=== PATIENT | male | born 1940 | race Caucasian/White ===

== ENCOUNTER 2020-06-29 16:31 | Inpatient (IN) | payer OTHER ==
[~2020-06-29] VITALS: Ht 188 cm; Wt 116.3 kg
[~2020-06-29 16:31] MED LIST: CAND4 PO; OXYACE5T PO
[2020-06-29 17:05] LABS: BASOPHILS ABSOLUTE AUTO 0.04 K/mm3 (0.00-0.23); BASOPHILS PERCENT AUTO 1 % (0-2); EOSINOPHILS ABSOLUTE AUTO 0.02 K/mm3 (0.00-0.68); EOSINOPHILS PERCENT AUTO 0 % (0-6); Hematocrit 46.8 % (37.0-53.0); Hemoglobin 14.7 g/dL (13.5-17.5); IMMATURE GRAN ABSOLUTE AUTO 0.08 K/mm3 (0.00-0.10); IMMATURE GRAN PERCENT AUTO 1 % (0-1); LYMPHOCYTES ABSOLUTE AUTO 1.85 K/mm3 (0.84-5.20); LYMPHOCYTES PERCENT AUTO 32 % (21-46); MONOCYTES ABSOLUTE AUTO 1.49 K/mm3 (0.16-1.47); MONOCYTES PERCENT AUTO 26 % (4-13); Mean Corpuscular HGB 29.4 pg (26.0-34.0); Mean Corpuscular HGB Conc 31.4 g/dL (31.5-36.5); Mean Corpuscular Volume 94 fL (80-100); NEUTROPHILS ABSOLUTE AUTO 2.25 K/mm3 (1.96-9.15); NEUTROPHILS PERCENT AUTO 39 % (41-73); Platelet Count 106 K/mm3 (150-400); RDW Coefficient Variation 17.3 % (11.7-14.2); RDW Standard Deviation 59.4 fL (35.1-46.3); White Blood Cell Count 5.73 K/mm3 (4.00-11.30)
[2020-06-29 17:29] LABS: Alanine Aminotransfer (ALT/SGP 48 U/L (12-78); Albumin, Blood 4.3 g/dL (3.4-5.0); Alk Phos 85 U/L (50-136); Anion Gap 4 mmol/L (6-16); Aspartate Aminotrans (AST/SGOT 40 U/L (12-37); Bilirubin, Total 0.6 mg/dL (0.1-1.0); Blood Urea Nitrogen 26 mg/dL (8-24); Bun/Creatinine Ratio 29.3 (12.0-20.0); CO2, Blood 26 mmol/L (21-32); Calcium, Blood 9.4 mg/dL (8.5-10.1); Chloride, Blood 108 mmol/L (98-108); Creatinine, Blood 0.89 mg/dL (0.60-1.20); Globulin, Blood 4.5 g/dL (2.2-4.0); Glomerular Filtration Rate >60 (60-); Glucose, Blood 108 mg/dL (70-99); Potassium, Blood 4.5 mmol/L (3.5-5.5); Sodium, Blood 138 mmol/L (136-145); Total Protein, Blood 8.8 g/dL (6.4-8.2)
[2020-06-29 17:31] LABS: Troponin I <0.015 ng/mL (0.000-0.040)
[2020-06-29] MEDS ORDERED: MECL25 PO (18:39)
[2020-06-29] MEDS ORDERED: ELIQUIS5 M2 PO (19:29)
[2020-06-29] MEDS ORDERED: TAMSULOSIN HCL0.4 M1 PO (19:37)
--- NOTE | 2020-06-29 21:30 | NUR ---
REPORT FROM APPLE SUMNER IN ER. PT ARRIVES TO ICU ROOM 10 VIA STRETCHER. ALERT AND ORIENTED. MOVES TO NEW BED BY STANDING AND PIVOTING. PT DIZZY WITH MOVEMENT. BP ELEVATED. HR 40S AFIB. 18G TO RIGHT FA, DRESSING C/D/I, 18G TO LEFT AC, C/D/I. SKIN WNL. ABD SOFT AND NON TENDER +BS. LUNG SOUNDS CLEAR. PT ON ROOM AIR, SATS >92%. PT STATES HE HAS BEEN DIZZY AND NAUSEATED FOR WEEKS. SEE FULL SHIFT ASSESSMENT.
[2020-06-29 21:49] LABS: International Normalized Ratio 1.08; Prothrombin Time Results 11.5 Sec (9.7-11.5)
[2020-06-30 04:02] LABS: BASOPHILS ABSOLUTE AUTO 0.04 K/mm3 (0.00-0.23); BASOPHILS PERCENT AUTO 1 % (0-2); EOSINOPHILS ABSOLUTE AUTO 0.07 K/mm3 (0.00-0.68); EOSINOPHILS PERCENT AUTO 1 % (0-6); Hematocrit 42.3 % (37.0-53.0); Hemoglobin 13.8 g/dL (13.5-17.5); IMMATURE GRAN ABSOLUTE AUTO 0.06 K/mm3 (0.00-0.10); IMMATURE GRAN PERCENT AUTO 1 % (0-1); LYMPHOCYTES ABSOLUTE AUTO 2.24 K/mm3 (0.84-5.20); LYMPHOCYTES PERCENT AUTO 37 % (21-46); MONOCYTES ABSOLUTE AUTO 1.46 K/mm3 (0.16-1.47); MONOCYTES PERCENT AUTO 24 % (4-13); Mean Corpuscular HGB 29.9 pg (26.0-34.0); Mean Corpuscular HGB Conc 32.6 g/dL (31.5-36.5); Mean Corpuscular Volume 92 fL (80-100); NEUTROPHILS ABSOLUTE AUTO 2.17 K/mm3 (1.96-9.15); NEUTROPHILS PERCENT AUTO 36 % (41-73); Platelet Count 93 K/mm3 (150-400); RDW Coefficient Variation 17.4 % (11.7-14.2); RDW Standard Deviation 58.7 fL (35.1-46.3); Red Blood Cell Count 4.62 M/mm3 (4.30-5.90); White Blood Cell Count 6.04 K/mm3 (4.00-11.30)
[2020-06-30 04:04] LABS: Mean Platelet Volume 13.1 fL (9.1-12.4)
[2020-06-30 04:13] LABS: International Normalized Ratio 1.15; Prothrombin Time Results 12.2 Sec (9.7-11.5)
[2020-06-30 04:18] LABS: Alanine Aminotransfer (ALT/SGP 42 U/L (12-78); Albumin, Blood 3.9 g/dL (3.4-5.0); Alk Phos 74 U/L (50-136); Anion Gap 5 mmol/L (6-16); Aspartate Aminotrans (AST/SGOT 33 U/L (12-37); Bilirubin, Total 0.8 mg/dL (0.1-1.0); Blood Urea Nitrogen 22 mg/dL (8-24); CO2, Blood 26 mmol/L (21-32); Calcium, Blood 8.6 mg/dL (8.5-10.1); Chloride, Blood 110 mmol/L (98-108); Creatinine, Blood 0.92 mg/dL (0.60-1.20); Globulin, Blood 4.1 g/dL (2.2-4.0); Glomerular Filtration Rate >60 (60-); Glucose, Blood 92 mg/dL (70-99); Potassium, Blood 3.6 mmol/L (3.5-5.5); Sodium, Blood 141 mmol/L (136-145); Troponin I <0.015 ng/mL (0.000-0.040)
--- NOTE | 2020-06-30 06:18 | NUR ---
SHIFT SUMMARY PT REMAINS ALERT AND ORIENTED. VSS. RA SATS >92%, BP IMPROVED AFTER RECEIVING PO APRESOLINE, PO LISINOPRIL AND IV APRESOLINE. PT WITH NO COMPLAINTS OF PAIN OR SOB. C/O DIZZINESS ONLY. NPO SINCE MIDNIGHT. VOIDS USING URINAL. NO SKIN ISSUES. SL 18G TO RIGHT FA, DRESSING C/D/I. HEPARIN INFUSING @ 15UNITS/KG/HR TO 18G IN LEFT AC. PLAN FOR CARDIOLOGY TO SEE PT FOR POSS PACEMAKER PLACEMENT. WILL REPORT TO ONCOMING SHIFT
--- NOTE | 2020-06-30 07:15 | NUR ---
Assumed care of pt at 0700. Bedside report received from Jose SUMNER. Pt A&O x 4. Answers questions. Follows commands. Verbalizes needs. Bedrest at this time due to low HR with several PVCs. Currently atrial fibrillation with left bundle branch block, rate 45-55, and approx 9 PVCs per minute. No edema. Pt on room air. SpO2 90% or greater. Lungs clear t/o. No cough. Pt PCU status. Bed in lowest position. Call light in reach. Pt denies need at this time.
--- NOTE | 2020-06-30 07:54 | NUR ---
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 States for pt to be NPO after midnight tonight.
--- NOTE | 2020-06-30 07:56 | NUR ---
CALL PLACED TO DR MARIN Notified provider that pt will not be receiving a pacemaker today. States it is okay for pt to have a diet.
--- NOTE | 2020-06-30 08:42 | NUR ---
Dr Arreola called unit to state he may place a pacemaker today. States he would like heparin drip turned off. He would like for pt to remain NPO at this time.
--- NOTE | 2020-06-30 11:37 | NUR ---
Pt has departed to heart center for pacemaker placmement. Pt NPO preprocedure.
--- NOTE | 2020-06-30 12:19 | NUR ---
ECHOCARDIOGRAM COMPLETED
--- NOTE | 2020-06-30 14:28 | NUR ---
Pt back in room from [facility] [place], status post single chamber pacemaker placemement. Surgical wound to left chest wall, dressed with nonadherent dressing and tegaderm. Dressing C/D/I. Atrial fibrillation per monitor with heart rate ranging from 60-70. No pacemaker spikes noted on monitor. Per procedural note, back up rate is 50. This RN educated pt on activity restrictions. Pt verbalized understanding. Sling placed per orders from Dr Arreola. Pt provided with written education, Dr Arreola Pacemaker Packet.
--- NOTE | 2020-06-30 18:47 | NUR ---
Pt has been sitting up in bed, awake and alert since return from labor custodian. HR 50 or greater. Dressing to left chest wall C/D/I. No drainage or bruising noted to site. Pt OOB once since return from labor custodian, to stand and use urinal. Unsteady on feet. Will continue to closely monitor until care handoff and bedside report with oncoming RN.
--- NOTE | 2020-06-30 20:37 | NUR ---
ASSUMED CARE NOTE: ASSUMED CARE OF PT AT 1900, RECEVIED REPORT FROM ANIYAH SUMNER. PT IS ALERT AND ORIENTEDX3. PT IS VERY [place]. PT ATTEMPTING TO GET OUT OF BED ON HIS OWN, HOWEVER, HE IS UNSTEADY OF HIS FEET. PT C/O DIZZINESS. PT IS IN AFIB, WITH HR BETWEEN 60-70'S. NO PACEMAKER SPIKES NOTED. PACEMAKER SITE IS COVERED, DRESSING IS C/D/I. PT DENIES PAIN TO SITE, ARM SLING IN PLACE. PT REMINDED NOT TO ELEVATE ARM. BT HEARD IN ALL FOUR QUADRANTS. PT USES URINAL AT BEDSIDE. WILL CONTINUE TO MONITOR PT T/O SHIFT.
--- NOTE | 2020-06-30 21:46 | NUR ---
UPDATE: PT IS CONFUSED, HE STARTED TO CALL OUT FOR PAULINE, HIS . STS THAT HE IS IN HIS NEIGHBORS HOUSE. HE THEN STARTED TO GET OUT OF BED STATING " WILL YOU HELP ME GET TO MY HOUSE" PT WAS THEN REORIENTED. HE UNDERSTANDS HE IS IN THE HOSPITAL. PT STS HIS HAS BEEN TELLING HIM THAT HE IS SEEING THINGS AT NIGHT THAT ARE NOT THERE. 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 PT WAS HELPED WITH URINAL AT BEDSIDE. PT WAS PLACED BACK TO BED WITH CALL LIGHT WITHIN REACH. BED AT LOWEST LEVEL, AND BED ALARM ON.
[2020-07-01 04:32] LABS: Hematocrit 43.3 % (37.0-53.0); Mean Corpuscular HGB 29.8 pg (26.0-34.0); Mean Corpuscular HGB Conc 32.3 g/dL (31.5-36.5); Mean Corpuscular Volume 92 fL (80-100); Platelet Count 91 K/mm3 (150-400); RDW Coefficient Variation 17.4 % (11.7-14.2); RDW Standard Deviation 59.4 fL (35.1-46.3); White Blood Cell Count 7.86 K/mm3 (4.00-11.30)
[2020-07-01 04:52] LABS: Albumin, Blood 3.9 g/dL (3.4-5.0); Anion Gap 7 mmol/L (6-16); Blood Urea Nitrogen 25 mg/dL (8-24); Bun/Creatinine Ratio 21.6 (12.0-20.0); CO2, Blood 24 mmol/L (21-32); Chloride, Blood 109 mmol/L (98-108); Creatinine, Blood 1.16 mg/dL (0.60-1.20); Glomerular Filtration Rate >60 (60-); Glucose, Blood 102 mg/dL (70-99); Phosphorus, Blood 3.3 mg/dL (2.5-4.9); Potassium, Blood 3.9 mmol/L (3.5-5.5); Sodium, Blood 140 mmol/L (136-145)
--- NOTE | 2020-07-01 06:18 | NUR ---
SHIFT SUMMARY: PT IS CONFUSED, AND IS UNABLE TO RECALL RECENT EVENTS. PT HAS NOT SLEPT THIS SHIFT. HE IS CONVINCED THAT HIS IS OUTSIDE HIS ROOM, AND THAT SHE IS GOING TO ASK FOR A DIVORCE. HR IS ANXIOUS AND IS WANTING TO GO HOME. PT NEEDS TO BE REORIENTED EACH TIME CARE IS BEING GIVEN. PT HAS BEEN IN AFIB WITH HR BETWEEN 60-70 BPM. PACEMAKER DRESSING INTACT, SCANT AMOUNTS OF SEROUS FLUID NOTED. PT NEEDS CONSTANT REMINDER TO NOT USE LEFT ARM. PT HAS BEEN TRYING TO GET OUT OF BED MULTIPLE TIMES T/O SHIFT. PT HAS BEEN USING URINAL AT BEDSIDE T/O SHIFT WITH ONE PERSON ASSIT. ELEVATED BP TOWARDS END OF SHIFT, HYDRALYZINE GIVEN PER EMAR. WILL CONTINUE TO MONITOR PT UNTIL REPORT IS GIVEN TO ONCOMING SHIFT. BED ALARM ON, BED AT LOWEST LEVEL.
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
--- NOTE | 2020-07-01 08:42 | NUR ---
Dr Arreola in to see pt. States that from cardiology standpoint, pt is okay to go home.
--- NOTE | 2020-07-01 09:53 | NUR ---
Pt unsafe, continuously triggers bed alarm, or tab alarm and typically across room when staff enter. Pt unsteady on feet and often falls into recliner, chair, or bed, and then states "Wow! I'm so dizzy". When asked if he thinks his actions are unsafe, he states "Well yeah, but I got to get stuff done. I have to go home and do things". Pt reminded that this is not a safe choice as pt has not been discharged from hospital. Pt agrees, but then continues to try and get up. Call placed to Dr Eugene. Pt okay to be placed in vest restraint for safety. PT/OT to be ordered for pt for safe mobility.
--- NOTE | 2020-07-01 11:00 | NUR ---
Dr Biswastrate in to see pt. Provider states pt may have PO ativan for agitation. Provider would like for pt to stay PCU status today.
--- NOTE | 2020-07-01 19:00 | NUR ---
SUMMARY Pt's delirium progressed as the shift continued. Auditory and visual hallucinations continued. Pt became increasingly agitated as shift progressed. Pt threw his wristwatch against the wall, breaking it, while in soft restraints. Pt able to get out of soft restraints several times and discontinue IVs, therefore upgraded to locked restraints. Locked restraints placed to BLE as patient began agitated flailing of legs, outside of bed. Security called to unit twice to assist with initial placement of locked restraints, and again when pt required bedding change due to incontinent urine void. Prior to placement of locked restraints, family was attempted to be reached by Gayathri SUMNER to sit with patient. Unable to reach family. Dr Eugene was updated by this RN several times as agitation progressed. Pt ultimately upgraded to ICU status with precedex drip to manage agitation. This RN placed call to Dr Eugene to inquire about head CT. New orders given. Head CT obtained and patient taken to CT by this RN and DARCY Shelley. At this time, precedex is at 0.7 mcg/kg/hr. BP stable. Bedside report given to Nicole SUMNER.
--- NOTE | 2020-07-01 19:30 | NUR ---
ASSUMED CARE NOTE: PT IS SEDATED WITH 0.7MCG/KG/HR OF PRECEDEX. PT IS RESPONDING TO PAINFUL STIMULI. PT IS ONM RA WITH SPO2 AT 97%, NO RESPRIATORY DISTRESS NOTED. PT IS IN AFIB WITH HR BETWEEN 50-60. PT IS IN TAT X4 RESTRAINTS. PT HAS BEEN INCONTINET OF URINE ACCORDING TO DAY SHIFT, ATTENDS IN PLACE. PACEMAKER SITE DRESSING IS INTACT. WILL TITRATE PRECEDEX, TO ASSESS NEURO STATUS. WILL CONTINUE TO MONITOR PT T/O SHIFT.
--- NOTE | 2020-07-01 21:05 | NUR ---
UPDATE: PT FIGHTING RESTRAINTS. PT IS MUMBULING, NOT MAKING ANY SENSE. NOT OPENING EYES. PRECEDEX TITATED TO 0.7MCG/KG/HR, DUE TO INCREASED AGITATION.
--- NOTE | 2020-07-01 21:35 | NUR ---
UPDATE: 5 STAFF MEMBERS IN ROOM TO HELP CHANGE PT'S SOLIED ATTEND. PT THRASHING IN BED, ATTEMPTING TO BITE. CURSING AND YELLING OUT. CONDOM CATH APPLIED TO TO PREVENT SKIN BREAKDOWN. NEW IV PLACED TO LEFT HAND, REQUIRED TWO STAFF MEMBERS. PT NOW CALM AND RESTING.
--- NOTE | 2020-07-01 22:12 | NUR ---
UPDATE: PT IS DESATURATING INTO THE MID 80'S WHILE SLEEPING. PT PLACED ON 2L OF 02 VIA NC, SPO2 AT 95%
--- NOTE | 2020-07-01 23:45 | NUR ---
CALLED REGARDING ELEVATED BP. ORDERS FOR HYDRALYZINE IV GIVEN. PRECEDEX 0.2MCG/KG/HR. PT IS BEING AFIB/PACED, HR CURRENTLY BETWEEN 49-60
[2020-07-02 03:35] LABS: BASOPHILS ABSOLUTE AUTO 0.04 K/mm3 (0.00-0.23); BASOPHILS PERCENT AUTO 1 % (0-2); EOSINOPHILS ABSOLUTE AUTO 0.03 K/mm3 (0.00-0.68); EOSINOPHILS PERCENT AUTO 0 % (0-6); Hemoglobin 14.7 g/dL (13.5-17.5); IMMATURE GRAN ABSOLUTE AUTO 0.07 K/mm3 (0.00-0.10); IMMATURE GRAN PERCENT AUTO 1 % (0-1); LYMPHOCYTES ABSOLUTE AUTO 1.25 K/mm3 (0.84-5.20); LYMPHOCYTES PERCENT AUTO 15 % (21-46); MONOCYTES ABSOLUTE AUTO 3.22 K/mm3 (0.16-1.47); MONOCYTES PERCENT AUTO 38 % (4-13); Mean Corpuscular HGB 29.9 pg (26.0-34.0); Mean Corpuscular Volume 94 fL (80-100); NEUTROPHILS ABSOLUTE AUTO 3.93 K/mm3 (1.96-9.15); NEUTROPHILS PERCENT AUTO 46 % (41-73); Platelet Count 87 K/mm3 (150-400); RDW Coefficient Variation 17.3 % (11.7-14.2); RDW Standard Deviation 60.4 fL (35.1-46.3); Red Blood Cell Count 4.92 M/mm3 (4.30-5.90); White Blood Cell Count 8.54 K/mm3 (4.00-11.30)
[2020-07-02 03:42] LABS: Mean Platelet Volume 12.9 fL (9.1-12.4)
[2020-07-02 03:50] LABS: Anion Gap 3 mmol/L (6-16); Blood Urea Nitrogen 16 mg/dL (8-24); Bun/Creatinine Ratio 16.7 (12.0-20.0); CO2, Blood 29 mmol/L (21-32); Chloride, Blood 110 mmol/L (98-108); Creatinine, Blood 0.96 mg/dL (0.60-1.20); Glomerular Filtration Rate >60 (60-); Glucose, Blood 112 mg/dL (70-99); Potassium, Blood 4.3 mmol/L (3.5-5.5); Sodium, Blood 142 mmol/L (136-145)
--- NOTE | 2020-07-02 05:04 | NUR ---
UPDATE: PT AWAKE, HE IS ORIENTED TO SELF AND FAMILY. PT IS AGITATED, MAKING THE FOLLOWING STATEMENTS: " IF I GET OUT OF THESE CUFFS, YOU ARE GOING TO WISH YOU WERE NOT HERE" " I DO NOT MAKE THREATS I JUST DO IT" " I WILL GET YOU, YOU LITTLE BUTTS, YOU WILL NEVER BE SEEN AGAIN" PT IS AGITATED BECAUSE HE THINKS WE ARE STEALING HIS BELONGINGS AND HOLDING HIS CAPTIVE. PT IS CONFUSED AND UNABLE TO BE REORIENTED. PRECEDEX CONTINUES TO BE AT 0.2MCG/KG/HR. BED AT LOWEST LEVELS, CALL LIGHT WITHIN REACH
--- NOTE | 2020-07-02 06:28 | NUR ---
SHIFT SUMMARY: SEE PREVIOUS NOTES.PT REMAINS ON 0.2MCG/KG/HR OF PRECEDEX. PT IS AGITATED WHEN AWAKE, WILL MAKES THREATS TO STAFF. PT IS STILL IN TATX4 RESTRAINTS. HE IS ALERT AND ORIENTED TO SELF. REFUSES TO FOLLOW COMMANDS. PT IS HAVING AUDITORY HALLUCINATIONS. PT IS NOW ON RA WITH SPO2 ABOVE 95%, REQUIRED 2L OF 02 VIA NC WHILE SLEEPING. BP STABLE, NO NEED FOR HYDRALYZINE NEEDED. PT HAS BEEN IN AFIB/PACED HR BETWEEN 49-65 BPM. PACEMAKER DRESSING INTACT. CONDOM CATH IN PLACE, GOOD URINE OUTPUT. NO BM THIS SHIFT, ATTENDS IN PLACE. WILL CONTINUE TO MONITOR PT UNTIL REPORT IS GIVEN TO ONCOMING SHIFT.
--- NOTE | 2020-07-02 08:56 | NUR ---
Received report from Regulo SUMNER. Patient sleeping at time of report and awakens easily to verbal stimuli. He is on RA and sats >90%. he is alert and oriented mostly and occassionally asks what facility he is in and then states "thats right" and is clear. Removed restraints at 0830 and patient calm and cooperative and states he ows alot of apologies for acting out. Sat him up for breakfast and he ate 100% and all fluids and asked for water afterwards. Got him out of bed after sitting at bedside and he did well with SBA. He is still alittle wobbly, and waked him for about 5 minutes in roomjust holding arm. Istrate by and did discharge and he called and will be going home. He has 18ga RAC dressing intact and site WNL's and is infusing NS at 75ml/hr and Prededex at 0.2 mcg/kg/hr and placed on standby at 0830.
[2020-07-02] MEDS ORDERED: ACET325 PO (09:38)
[2020-07-02] MEDS ORDERED: AMLO5 PO (09:40)
[2020-07-02] MEDS ORDERED: DOCU100 PO (09:41)
[2020-07-02] MEDS ORDERED: FAMO20 (09:42)
[2020-07-02] MEDS ORDERED: HYDR10 PO (09:43)
[2020-07-02] MEDS ORDERED: ONDA4ODT MM (09:44)
--- NOTE | 2020-07-02 10:53 | NUR ---
OT came ad assessed patient and requested that PT come evaluate. Patient has been up several times and is slightly unstable on his feet. PT in room training with cane. has arrived and will be taking him home. Called scripts into [facility].
--- NOTE | 2020-07-02 11:24 | NUR ---
Reviewed written discharge summary and new scripts with spouse and she returned understanding and also gave her ICU # incase any new questions. Patient wanted to walk out and was assisted by Daphney TAVERAS . Patient had all personal belongings. IV's pulled intact.
== END 2020-07-02 11:25 | disposition home or self-care (01) | DRG 243 ==
LOC: ER 16:31 → ICUW 16:32 → PCU 16:32 → ICUW 21:30
PROVIDERS: Family Medicine; Internal Medicine; Physician Assistant; ADMIT Internal Medicine
PROC: 0JH604Z Insertion of Pacemaker, Single Chamber into Chest Subcutaneous Tissue and Fascia, Open Approach (ICD-10-PCS; principal; 2020-06-30)
PROC: 02HK3JZ Insertion of Pacemaker Lead into Right Ventricle, Percutaneous Approach (ICD-10-PCS; 2020-06-30)
PROC: 3E0132A Introduction of Anti-Infective Envelope into Subcutaneous Tissue, Percutaneous Approach (ICD-10-PCS; 2020-06-30)
DX: I49.5 Sick sinus syndrome (principal); I48.21 Permanent atrial fibrillation; I44.7 Left bundle-branch block, unspecified; M06.9 Rheumatoid arthritis, unspecified; N40.0 Benign prostatic hyperplasia without lower urinary tract symptoms; D69.6 Thrombocytopenia, unspecified; E66.01 Morbid (severe) obesity due to excess calories; I10 Essential (primary) hypertension; Z68.33 Body mass index [BMI] 33.0-33.9, adult
CPT/HCPCS: 33207; 36415; 70450; 71045; 71046; 80048; 80053; 80069; 84443; 84484; 85025; 85027; 85610; 85730; 93005; 93010; 93306; 97116; 97162; 97166; 97530; 97535; 99152; 99153; 99285-25; A9270; C1781; C1786; C1894; C1898; J0360; J0690; J1644; J2250; J3010; J7030; J7040

== ENCOUNTER 2022-06-08 16:14 | Inpatient (IN) | payer OTHER ==
[~2022-06-08] VITALS: Ht 185.4 cm; Wt 119.5 kg
[~2022-06-08 16:14] MED LIST changes: +ACET325 PO; +AMLO5 PO; +DOCU100 PO; +ELIQUIS5 M2 PO; +FAMO20 PO; +HYDR10 PO; +MECL25 PO; +ONDA4ODT MM; +TAMSULOSIN HCL0.4 M1 PO
[2022-06-08 17:22] LABS: BASOPHILS ABSOLUTE AUTO 0.04 K/mm3 (0.00-0.23); BASOPHILS PERCENT AUTO 1 % (0-2); EOSINOPHILS ABSOLUTE AUTO 0.02 K/mm3 (0.00-0.68); EOSINOPHILS PERCENT AUTO 0 % (0-6); Hematocrit 37.8 % (37.0-53.0); Hemoglobin 12.8 g/dL (13.5-17.5); IMMATURE GRAN ABSOLUTE AUTO 0.06 K/mm3 (0.00-0.10); IMMATURE GRAN PERCENT AUTO 1 % (0-1); LYMPHOCYTES ABSOLUTE AUTO 1.09 K/mm3 (0.84-5.20); LYMPHOCYTES PERCENT AUTO 14 % (21-46); MONOCYTES ABSOLUTE AUTO 2.36 K/mm3 (0.16-1.47); MONOCYTES PERCENT AUTO 29 % (4-13); Mean Corpuscular HGB 29.7 pg (26.0-34.0); Mean Corpuscular HGB Conc 33.9 g/dL (31.5-36.5); Mean Corpuscular Volume 88 fL (80-100); NEUTROPHILS ABSOLUTE AUTO 4.47 K/mm3 (1.96-9.15); NEUTROPHILS PERCENT AUTO 56 % (41-73); Platelet Count 167 K/mm3 (150-400); RDW Coefficient Variation 15.3 % (11.7-14.2); RDW Standard Deviation 48.6 fL (35.1-46.3); Red Blood Cell Count 4.31 M/mm3 (4.30-5.90); White Blood Cell Count 8.04 K/mm3 (4.00-11.30)
[2022-06-08 17:24] LABS: Source, Urine Clean Catch
[2022-06-08 17:29] LABS: Albumin, Blood 4.1 g/dL (3.4-5.0); Albumin/Globulin Ratio 0.9 (0.8-1.8); Bun/Creatinine Ratio 22.8 (12.0-20.0); Calcium, Blood 9.1 mg/dL (8.5-10.1); Creatinine, Blood 0.75 mg/dL (0.60-1.20); Globulin, Blood 4.4 g/dL (2.2-4.0); Potassium, Blood 3.5 mmol/L (3.5-5.5); Total Protein, Blood 8.5 g/dL (6.4-8.2)
[2022-06-08 17:32] LABS: Appearance, Urine Clear (Clear); Bilirubin, Urine Neg (Neg); Blood, Urine 3+ (Neg); Color, Urine Yellow (P-Yellow); Glucose Qualitative, Urine Neg (Neg); Ketones, Urine Neg (Neg); Leukocyte Esterase, Urine 1+ (Neg); Nitrite, Urine Neg (Neg); Protein, Urine 3+ (Neg); Specific Gravity, Urine 1.025 (1.003-1.022); Urobilinogen, Urine 2+ (Normal)
[2022-06-08 17:33] LABS: Mean Platelet Volume 13.7 fL (9.1-12.4)
[2022-06-08 17:54] LABS: Bacteria Mod /hpf; Granular Casts 0-2 /lpf (0); Squamous Epithelial Cells Rare /hpf (Few)
[2022-06-08 17:56] LABS: Magnesium, Blood 2.1 mg/dL (1.6-2.4)
[2022-06-08 17:58] LABS: Thyroid Stimulating Hormone 0.749 uIU/mL (0.360-4.800)
[2022-06-08 18:04] LABS: Base Excess Venous -0.9 mmol/L; Bicarbonate Venous 23.7 mmol/L (24.0-30.0); PCO2 Venous 35.8 mmHg (38-42); pH Blood Venous 7.43 (7.34-7.37)
[2022-06-08 18:38] LABS: Influenza A, PCR NEGATIVE (NEGATIVE); Influenza B, PCR NEGATIVE (NEGATIVE); Resp Syncytial Virus, PCR NEGATIVE (NEGATIVE); SARS-Cov-2 (COVID-19) PCR, MMC NEGATIVE (NEGATIVE)
[2022-06-08] MEDS ORDERED: LEFLUNOMIDE20 M2 PO (21:29)
[2022-06-08] MEDS ORDERED: DONEPEZIL HCL5 M2 PO (21:30)
--- NOTE | 2022-06-08 22:35 | NUR ---
ADMIT NOTE 81 YR OLD MALE ADMITTED TO FLOOR FROM THE ED WITH DX OF SEPSIS POSIBLY DUE TO UTI. ED RN VOICED WAS COVID POSITIVE 2 WKS AGO, BUT CURRENTLY TESTED NEGATIVE. STATED PT LIVES WITH HIS SON, WHO SHE REPORTEDLY SAID HE WAS GETTING MORE CONFUSED AND EVEN STRIPPED OFF CLOTHING AND RAN AROUND HOUSE "NAKED". PT APPEARS CONFUSED BUT CALM. CALL LIGHT IN REACH. BED ALARM ON. RAILS UP X 3
--- NOTE | 2022-06-08 23:35 | NUR ---
tele rn reports elevated ST waves. On pt assessment, denies chest pain. VS: T 98.6 temporal, P 71, R 20 even. BP 188/110 left wrist. O2 sats 100% room air. charge nurse did 12 lead EKG, : A fib, Left Zarephath deviation and left BBB. Call placed to MD recreation instructor. Orders obtained for SL Nitro for CP, Troponin level and send to PCU. Charge nurse notified.
[2022-06-09 00:27] LABS: Hematocrit 40.2 % (37.0-53.0); Hemoglobin 13.5 g/dL (13.5-17.5); Mean Corpuscular HGB 29.7 pg (26.0-34.0); Mean Corpuscular HGB Conc 33.6 g/dL (31.5-36.5); Mean Corpuscular Volume 89 fL (80-100); Platelet Count 175 K/mm3 (150-400); RDW Coefficient Variation 15.3 % (11.7-14.2); RDW Standard Deviation 48.8 fL (35.1-46.3); Red Blood Cell Count 4.54 M/mm3 (4.30-5.90); White Blood Cell Count 10.48 K/mm3 (4.00-11.30)
--- NOTE | 2022-06-09 00:33 | NUR ---
TRANSFER RECEIVED FROM MEDICAL FLOOR BY BED. PT IS AWAKE AND ALERT. ORIENTED TO SELF ONLY. DOES FOLLOW SIMPLE DIRECTIONS. MINIMAL VERBAL RESPONSE- MOSTLY YES AND NO ANSWERS. RESTLESS AND SLIGHTLY AGITATED. DENIES C/O CHEST PAIN OR OTHER DISCOMFORT AT THIS TIME. MONITOR SHOWS AFIB WITH BBB. OCCASIONALLY VENTRICULAR PACED. HYPERTENSION NOTED. LR INFUSING AT 125CC/HR PER ORDER. ATTENDS IN PLACE D/T INCONTINENCE. SEE ADMIT ASSESSMENT FOR FULL ASSESSMENT.
[2022-06-09 00:43] LABS: Bun/Creatinine Ratio 22.7 (12.0-20.0); Calcium, Blood 8.6 mg/dL (8.5-10.1); Creatinine, Blood 0.66 mg/dL (0.60-1.20); Potassium, Blood 3.8 mmol/L (3.5-5.5)
--- NOTE | 2022-06-09 00:45 | NUR ---
FAMILY UPDATE SON NOTIFIED OF PT'S TRANSFER TO ICU PCU STATUS.
--- NOTE | 2022-06-09 01:55 | NUR ---
HYPERTENSION/AGITATION/PAIN DR. PALMER NOTIFIED OF CONTINUED HYPERTENSION- NEW ORDER RECEIVED FOR HYDRALAZINE Q4H PRN. ALSO NOTIFIED OF PT CONTINUALLY GRABBING AT HIS PENIS. FACIAL GRIMACING NOTED. PT IS RESTLESS AND AGITATED- PULLING ON IV LINES AND PULLING OFF TELEMETRY LEADS REPEATEDLY. NEW ORDER RECEIVED FOR PAIN MANAGEMENT AND ALSO FOR RESTRAINTS.
--- NOTE | 2022-06-09 06:46 | NUR ---
SHIFT SUMMARY NO ACUTE CHANGES. CONTINUES TO BE AGITATED WHEN AWAKE. PULLING ON IV LINES, ATTENDS, TELEMETRY LEADS. PUSHES AGAINST STAFF WHEN ATTEMPTING TO TURN PATIENT. BILATERAL SOFT WRIST RESTRAINTS IN PLACE TO PROTECT TUBES/LINES. CONTINUES TO BE CONFUSED AND DISORIENTED. ORIENTED TO SELF ONLY. MEDICATED WITH FENTANYL 25MCG IV X 2 DOSES FOR COMFORT WITH GOOD RESULTS. LR INFUSING AT 125CC/HR. INCONTINENT OF URINE- ATTENDS IN PLACE. WILL REPORT TO ONCOMING RN WHEN AVAILABLE.
--- NOTE | 2022-06-09 09:00 | NUR ---
DETAILED NEURO ASSESSMENT When asked a question, pt struggles to respond with anything besides "yes", "no", or "hmm". Pt often requires commands to be repeated several times before he follows them. Employee Benefits Attorney are equal bilateral. Pt unable to wiggle toes when instructed to do so, but lifts his feet off the bed with equal strength. No facial droop. Updates given to family, who states that he is highly functional at baseline. 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 Family states that Marcy was recently hospitalized and David participated in her care, spoke to the healthcare providers, and was able to relay information given to him to the rest of the family.
--- NOTE | 2022-06-09 09:42 | NUR ---
Assumed care of pt at 0700. Report received from Marcy SUMNER. Pt alert. Answers questions, slow to respond. Unable to correctly state name or date of , able to state his 's name, however. Reluctant to follow directions. Unclear if able to safely give PO medications. Pt on room air. Afib per monitor with BBB and PVCs- no pacemaker spikes noted. SpO2 90% or greater room air. PCU status.
--- NOTE | 2022-06-09 09:55 | NUR ---
Unable to safely give PO meds. Pt is not following directions consistently enough and is having difficulty understanding cues to drink fluids.
--- NOTE | 2022-06-09 12:30 | NUR ---
Dr Chapman in to see patient. Provider states patient may be medical floor status without telemetry. Pt's family was concerned and stated "we want more testing done, like for heavy metals and mold". They stated concern because the patient lives in an older house. They also acknowledged that nobody else living in this house is ill. These concerns were realyed to Dr Chapman.
--- NOTE | 2022-06-09 14:27 | NUR ---
Noted worsening to rash on pt's left abdomen/flank area. Discussed with charge nurse. Concern that rash is shingles. Updated photographs taken. Dr Chapman notified. Bladder scan also performed because pt has not peed this shift. Bladder scan revealed greater than 1 L of urine in bladder. Temp henderson inserted. Urinalysis sent. Temp henderson revealed that pt is febrile per core temp.
[2022-06-09 14:45] LABS: Source, Urine Foley catheter
[2022-06-09 14:53] LABS: Appearance, Urine Clear (Clear); Bilirubin, Urine Neg (Neg); Blood, Urine 5+ (Neg); Color, Urine Amber (P-Yellow); Glucose Qualitative, Urine 2+ (Neg); Ketones, Urine 3+ (Neg); Leukocyte Esterase, Urine Neg (Neg); Nitrite, Urine Neg (Neg); Protein, Urine 3+ (Neg); Urobilinogen, Urine 1+ (Normal)
[2022-06-09 15:00] LABS: Red Blood Cells, Urine 50-100 /hpf (0-2); White Blood Cells, Urine 0-2 /hpf (0-5)
[2022-06-09 15:01] LABS: Bacteria Few /hpf; Squamous Epithelial Cells Not Seen /hpf (Few)
--- NOTE | 2022-06-09 17:56 | NUR ---
SUMMARY Pt is medical floor status. Telemetry no longer requried per orders. Neuro: Pt is alert. Able to state last name "Muna". Pt will not provide first name, date of , or current location. Pt often requires questions to be repeated before he provides a response. Pt often answers "yes", "no", "hmm", or he will laugh. PERRL. Cough and gag intact. PO intake given as pt's mentation and ability to follow directions permits. Currently afebrile. T-max this shift 101.2 per henderson catheter. Musucloskeletal: Moves all extremities with equal strength and range of motion bilaterally. Pt repositioned Q2H. In bilateral wrist restraints as pt has been pulling at lines and cords. Removed IV during previous shift. This RN has witnessed pt pulling at SpO2 and henderson catheter despite restraint. Respiratory: SpO2 90% or greater with room air. Dry, occasional, nonproductive cough. Lungs clear in upper ibarra, diminished in bases. Cardiac: Atrial fibrillation, rate 70-85. Bundle branch block. Occasional PVCs and occasional ventricular paced beats. No edema. Capillary refill <3 seconds BUE and BLE. GI: Incontinent BM this shift into attends- unformed, brown. : Temp henderson catheter placed due to urinary retention and bladder scan of <999 mL. 1200 mL of urine out this shift. Initally tea colored, but is now red/yellow. Henderson inserted without incident or difficulty, but pt now has blood at meatus and blood tinged urine from pulling on catheter. Skin: See previous note. Rash to LLQ/ L flank is shingles, per Dr Chapman. Pt in airborne isolation. Started on valacyclovir. Psychosocial: Confused, but otherwise smiling and pleasant.
--- NOTE | 2022-06-09 23:04 | NUR ---
ASSUMED CARE AT 1900 PT LAYING IN BED SLEEPING AT SHIFT CHANGE. PT IS RESPONSIVE TO VERBAL STIMULI; ORIENTED TO SELF AND SURROUNDINGS BUT UNKNONW OF PLACE, TIME, AND SITUATION; OCCATIONALLY FOLLOWS DIRECTIONS; SLEEPING WHEN NOT STIMULATED; WILL ANSER "YEAH" TO MOST QUESTIONS, UNSURE HOW APPROPORIATE THE ANSWER IS. SPO2 >97% ON RA. HR 70'S; AFIB NOTED, OCCATIONAL PACED BEATS. ESTEVEZ IN PLACE. SEE SHIFT ASSESSMENT FOR FULL ASSESSMENT.
--- NOTE | 2022-06-10 05:58 | NUR ---
END OF SHIFT SUMMARY NO ACUTE EVENTS OVERNIGHT AND SLEPT FOR MOST OF THE NIGHT. PT REACTIVE TO VERBAL STIMULI, HE RESPONDS WITH THREE PHRASES WHEN ASKED QUESTIONS "YEP", "NOPE", AND "[place]". VSS. FREQUENTLY ATTEMPTS TO PULL ON ESTEVEZ WHEN NOT RESTRAINED, NOT REDIRECTABLE. ATTEMPTED TO GIVE 0000 VALACYCLOVIS BUT PT REFUSED; PT NOT UNDERSTANDING HOW TO HAVE A BITE OF APPLESAUCE; HIS HEAD GOES BACK AND FORTH AND EVENTUALLY HE HELLED OUT "NO!" TO EATING MEDICATION IN APPLESAUCE. WILL REPORT TO AM RN WHEN AVIALABLE.
--- NOTE | 2022-06-10 07:15 | NUR ---
Assumed care of pt at 0700 from Patricia SUMNER. Pt is responsive to verbal stimulus. Does not follow commands. Rarely answers questions. SpO2 90% or greater with room air. Afib per monitor with PVCs, pacemaker spikes, and BBB. Lawrence catheter in place to facilitate urine drainage in pt with retention. Minoo urine. Bilateral soft wrist restraints to protect patient from pulling at cords and lines.
--- NOTE | 2022-06-10 08:30 | NUR ---
Call placed to Dr Chapman to discuss pt's deterioration in mental satus when compared with previous day shift. Discussed that pt is febrile and was unable to take valacylovir during previous shift. 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
[2022-06-10 08:31] LABS: Hematocrit 37.5 % (37.0-53.0); Hemoglobin 12.9 g/dL (13.5-17.5); Mean Corpuscular HGB 30.1 pg (26.0-34.0); Mean Corpuscular HGB Conc 34.4 g/dL (31.5-36.5); Mean Corpuscular Volume 87 fL (80-100); Platelet Count 162 K/mm3 (150-400); RDW Coefficient Variation 15.3 % (11.7-14.2); RDW Standard Deviation 48.9 fL (35.1-46.3); Red Blood Cell Count 4.29 M/mm3 (4.30-5.90)
[2022-06-10 08:33] LABS: Mean Platelet Volume 13.2 fL (9.1-12.4)
[2022-06-10 08:48] LABS: Albumin, Blood 3.5 g/dL (3.4-5.0); Albumin/Globulin Ratio 0.9 (0.8-1.8); Bilirubin, Total 1.2 mg/dL (0.1-1.0); Creatinine, Blood 0.57 mg/dL (0.60-1.20); Potassium, Blood 3.4 mmol/L (3.5-5.5); Total Protein, Blood 7.5 g/dL (6.4-8.2)
[2022-06-10 08:53] LABS: BASOPHILS PERCENT MAN 0 % (0-2); EOSINOPHILS PERCENT MAN 0 % (0-6); LYMPHOCYTES PERCENT MAN 9 % (21-46); MONOCYTES ABSOLUTE MAN 2.58 K/mm3 (0.16-1.47); MONOCYTES PERCENT MAN 21 % (4-13); NEUTROPHILS ABSOLUTE MAN 8.61 K/mm3 (1.96-9.15); SEG NEUTROPHILS PERCENT MAN 70 % (41-73); TOTAL CELLS COUNTED 100
--- NOTE | 2022-06-10 09:00 | NUR ---
Dr Chapman in to see patient. Provider states she will update family. Provided number for Zahraa, sister in law who is currently with the pt's spouse. Provider states pt to be PCU status for increased monitoring. Pt NPO.
--- NOTE | 2022-06-10 17:30 | NUR ---
SUMMARY Pt is PCU status. Transferred to PCU 12 at 1700, accompanied by this RN and PCT Meredith. Neuro: Responsive to verbal stimulus. Provides one to two words at a time, not always contextually appropriate. Rarely answers questions. Does not follow commands. 3 mm pupils PERRL. 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 Febrile per core temp. Required 650 mg tylenol rectally today as he cannot safely have PO intake. Musculoskeletal: Moves all extremities with equal strength and range of motion bilaterally. In bilat soft wrist restraints to prevent patient from pulling on cords and lines. Pt often reaches for henderson and pulls on it when he is able to. Cardiac: Afib per monitor with BBB, PVCs, and occaional V Paced beats. BP high/normal. No edema. Capillary refill <3 seconds BUE and BLE. GI: NPO this shift. No BM this shift. Abd soft, not tender on palpation. : Henderson catheter had good output of mendez urine. Skin: No changes to initial assessment. Shingles rash TAMERA. Pt is in airborne isolation Psychosocial: Unable to assess due to altered mentation and decreased LOC. Pt is withdrawn, irritable with stimulation, and confused. Family met with Dr Chapman today.
--- NOTE | 2022-06-10 18:33 | NUR ---
TRANSFER: pt transferred to PCU at 1708. He mumbles incoharently when asked orientation questions. Restraints in place. Niece at bedside.
[2022-06-11 04:42] LABS: BASOPHILS ABSOLUTE AUTO 0.03 K/mm3 (0.00-0.23); BASOPHILS PERCENT AUTO 0 % (0-2); EOSINOPHILS ABSOLUTE AUTO 0.05 K/mm3 (0.00-0.68); EOSINOPHILS PERCENT AUTO 0 % (0-6); Hematocrit 37.7 % (37.0-53.0); Hemoglobin 12.8 g/dL (13.5-17.5); IMMATURE GRAN ABSOLUTE AUTO 0.11 K/mm3 (0.00-0.10); IMMATURE GRAN PERCENT AUTO 1 % (0-1); LYMPHOCYTES ABSOLUTE AUTO 1.87 K/mm3 (0.84-5.20); LYMPHOCYTES PERCENT AUTO 16 % (21-46); MONOCYTES ABSOLUTE AUTO 4.29 K/mm3 (0.16-1.47); MONOCYTES PERCENT AUTO 37 % (4-13); Mean Corpuscular Volume 89 fL (80-100); NEUTROPHILS ABSOLUTE AUTO 5.37 K/mm3 (1.96-9.15); NEUTROPHILS PERCENT AUTO 46 % (41-73); Platelet Count 162 K/mm3 (150-400); RDW Coefficient Variation 15.2 % (11.7-14.2); RDW Standard Deviation 48.4 fL (35.1-46.3); Red Blood Cell Count 4.26 M/mm3 (4.30-5.90); White Blood Cell Count 11.72 K/mm3 (4.00-11.30)
[2022-06-11 04:47] LABS: Mean Platelet Volume 13.2 fL (9.1-12.4)
[2022-06-11 05:01] LABS: Albumin, Blood 3.5 g/dL (3.4-5.0); Albumin/Globulin Ratio 0.9 (0.8-1.8); Bilirubin, Total 1.7 mg/dL (0.1-1.0); Bun/Creatinine Ratio 26.3 (12.0-20.0); Calcium, Blood 7.9 mg/dL (8.5-10.1); Creatinine, Blood 0.65 mg/dL (0.60-1.20); Potassium, Blood 3.3 mmol/L (3.5-5.5); Total Protein, Blood 7.5 g/dL (6.4-8.2)
--- NOTE | 2022-06-11 05:50 | NUR ---
PATIENT REMAINED IN BILATERAL SOFT WRIST RESTRAINTS THROUHOUT THE NIGHT, CONSTANTLY PULLING AND GRABBING ANYTHING WITHIN HIS REACH. PT IS INITITALLY RESSISTENT TO ATTEMPTS TO PROVIDE CARE AND THEN IS AGREEABLE TO SOME WITH REASSURANCE OF BENEFIT OF CARE. OF NOW, AT 05:50, HE IS RESPONDING WITH TURCIOS SENTENCES VERSUS THE ONE OR TWO WORD ANSWERS AT THE BEGINNING OF THIS SHIFT. HE WAS ABLE TO DRINK SOME WATER WITH ASSISTANCE FROM STAFF WITHOUT ANY SWALLOWING CONCERNS. HE WAS NOT ABLE TO TAKE AN ORAL MEDICATIONS. I ATTEMPTED TO GIVE HIM ORAL TYLENOL AND HE FIRST TRIED TO CHEW THEM UP AND THEN SPIT THEM OUT. HE HAS BEEN FEBRILE WITH TEMPERATURES IN THE 99 - 101.5 RANGER PER CORE TEMPERATURE IN THE ESTEVEZ CATHETER. TYLENOL SUPPOSITORY ADMINISITERED ORDERED WITH SLIGHT DECREASE IN TEMPERATURE.
--- NOTE | 2022-06-11 15:46 | NUR ---
END OF SHIFT SUMMARY: PATIENT CHANGES. PATIENT IS NOW IN TOUGH COUGHS NEW ORDER IN SYSTEM, PATIENT HAS BEEN PULLING AT LINES, BUT NOW WITH THE TOUGH CUFFS, IS UNABLE OT REACH ESTEVEZ CATHETER, NON RESTRAINT TECHNIQUES IN PLACE WELL SUCH DISTRACTION, AND HIDING LINES AND CORDS. PATIENT IS STILL ONLY ALERT TO SELF, SINGLE WORDS ANSWERS, UNSURE OF SITUATION, IS MILDLY COOPERATIVE WITH CARE, UNABLE TO PREFORM ORAL CARE DUE TO MENTATION, WAS ABLE TO ADMINISTER OH TYLENOL, PATIENT TOLERATED WELL, WAS UNABLE TO PREFORM EVENING BLOOD PRESSURE, WILL ATTOMPT AGAIN WHEN TYLENOL IS AT FULL EFFECT. FAMILY WAS AT BEDSIDE EDUCATED ABOUT SITUATION. HOSPITALIST PREFORMED FULL PHYSICAL THIS AM AND IS AWARE OF SITUATION, NO CONCERNS FROM THIS RN OR HOSPITALIST AT THIS TIME WILL CONTINUE TO MONITOR.
[2022-06-12 04:40] LABS: BASOPHILS ABSOLUTE AUTO 0.07 K/mm3 (0.00-0.23); BASOPHILS PERCENT AUTO 1 % (0-2); EOSINOPHILS PERCENT AUTO 1 % (0-6); Hematocrit 37.7 % (37.0-53.0); Hemoglobin 12.8 g/dL (13.5-17.5); IMMATURE GRAN ABSOLUTE AUTO 0.09 K/mm3 (0.00-0.10); IMMATURE GRAN PERCENT AUTO 1 % (0-1); LYMPHOCYTES ABSOLUTE AUTO 1.75 K/mm3 (0.84-5.20); LYMPHOCYTES PERCENT AUTO 20 % (21-46); MONOCYTES ABSOLUTE AUTO 3.25 K/mm3 (0.16-1.47); MONOCYTES PERCENT AUTO 36 % (4-13); Mean Corpuscular HGB 29.8 pg (26.0-34.0); Mean Corpuscular Volume 88 fL (80-100); NEUTROPHILS ABSOLUTE AUTO 3.66 K/mm3 (1.96-9.15); NEUTROPHILS PERCENT AUTO 41 % (41-73); Platelet Count 163 K/mm3 (150-400); RDW Coefficient Variation 15.1 % (11.7-14.2); RDW Standard Deviation 48.4 fL (35.1-46.3); Red Blood Cell Count 4.29 M/mm3 (4.30-5.90); White Blood Cell Count 8.92 K/mm3 (4.00-11.30)
[2022-06-12 04:43] LABS: Mean Platelet Volume 13.1 fL (9.1-12.4)
[2022-06-12 04:56] LABS: Bun/Creatinine Ratio 26.4 (12.0-20.0); Calcium, Blood 7.8 mg/dL (8.5-10.1); Creatinine, Blood 0.57 mg/dL (0.60-1.20); Potassium, Blood 3.5 mmol/L (3.5-5.5)
--- NOTE | 2022-06-12 06:26 | NUR ---
NO ACUTE EVENTS OVERNIGHT LAST NIGHT. MR. MELARA'S MENTATION HAS IMPROVED SLIGHTLY. HE IS LESS RESISTENT TO CARES, FOLLOWING SOME DIRECTIONS, OPENING HIS EYES SPONTANEOUSLY AND KEEPING THEM OPEN, SPEAKING IN FULL SENTENCES VERSUS JUST ONE OR TWO WORDS. HE STILL PULLS AT ANYTHING WITHIN HIS REACH, BUT IS NOT FIGHTING THE RESTRAINTS MUCH. PT HAS BARELY SLEPT THE PAST TWO NIGHTS, AND HIS PO INTAKE IS VERY POOR.
--- NOTE | 2022-06-12 12:14 | NUR ---
FAMILY FEEDING PATIENT: PATIENT WAS RECENTLY UPGRADED TO PUREE DIET, PATIENT'S DAUGHTER ASKED IF SHE COULD FEED HIM. I SPECIFICALLY SAID NO DUE TO THIS BEING HIS FIRST TIME EATING. SHE NODDED IN AGREEMENT. PATIENT LOCAL DELIVERY DRIVERORLANDO HERNANDEZ INFORMED ME AFTER SHE WENT IN THE FAMILY HAD ALMOST HAD HIM COMPLETELY FINISHED WITH THE LUNCH TRAY. PATIENT IN NO SIGN OF ACUTE DISTRESS. CONTINUOUS PULSE OX IN PLACE. WILL CONTINUE TO MONITOR FOR POTENTIAL SIGNS OF ASPIRATION WE ARE UNAWARE OF HOW FAST AND LARGE THE PORTIONS WERE FROM FAMILY FEEDING.
--- NOTE | 2022-06-12 16:04 | NUR ---
END OF SHIFT MAXIMO: PATIENT HAS BEEN MORE ORIENTED AND ALERT FOR THE MOST SINCE I HAVE HAD THIS PATIENT. STILL ONLY ORIENTED TO SELF AND FAMILY, NOT SURE WHERE ATTMEPTED AND ENDORSED PAOLA. PATIENT HAS BEEN TOLERATING THE RESTRAINTS WELL. ESTEVEZ AND IV IN PLACE, SOME YODIT TO RED URINE INTERMITTENT BLOOD THROUGHOUT THE DAY, CATH CARE PREFORMED BY PCT DURING BED BATH. REPOSITIONED Q2. MULTIPLE BREAKS FROM RESTRAINTS WHILE IN THE ROOM. PATIENT HAS FRED MORE DROWSY DURING THE EVENING NAD HAS BEEN SLEEPING MOST OF THE DYA. PATIENT HSA BEEN UPGRADED FROM NPO, TO PUREE, PILLS CRUSHED IN PUDDING/APPLESAUCE. THIN LIQUIDS BY SPOON OR BY CUP. PATIENT HAS TOLERATED WELL. REFUSED ORAL CARE WILL ATTEMPT AGAIN LATER, PATIENT HAS BEEN HELD ON HEPARIN FOR POTENTIAL LUMBAR PUNCTURE THIS EVENING. HOSPITALIST WAS TO SPEAK WITH NIGHT HOSPITALIST WILL INFORM NIGHT RN. PATIENT IS ON RA WITH NO SIGNS OF ACUTE DISTRESS, SHINGLES ON LEFT FLANK APPEARS TO BE IMPROVING. TYLENOL GIVEN FOR KERR THIS AFTERNOON, HAS BEEN AFEBRILE FOR ME AT THIS TIME.
--- NOTE | 2022-06-12 16:14 | NUR ---
CONTINUED SHIFT SUMMARY: PATIENT DENIES CHEST PAIN, OR PAIN AT THIS TIME, NO OBVIOUS SKIN BREAKDOWN, PATIENT CAN ANSWER IN 1-2 WORDS WITH OCC SHORT SENTENCE. HARD TO DIFFER WHATS CONFUSION AND WHAT IS UNDERLYING ILLNESS PROGRESSION. PATIENT HAS LESLEY IV WHERE HE IS RECIEVING TKO ALONG WITH ACYCLOVIR, K+ REPLACEMENT, AND ATX, FLOWS WELL NO SIGNS OF INFILTRATION DURING THIS ASSESSMENT. WILL CONTINUE TO MONITOR UNTIL SHIFT CHANGE.
[2022-06-12 18:39] LABS: Automated CSF WBC Count 1.045 K/mm3 (0-5); WBC Count, CSF 1045 /mm3 (0-5)
--- NOTE | 2022-06-12 18:47 | NUR ---
LUMBAR PUNCTURE. SYED ACEVEDO WAS ANESTHISIOLOGY WHO PREFORMED LUMBAR PUNCTURE THIS OIL WELL DRILLER AND THREE OTHER RN'S AND PHYSICAL THERAPIST CENTER MANAGER ALL IN ASSISTNACE FOR LUMBAR PUNCTURE AND GETTING APPORPRIATE MATERIALS. PTT APPROPRIATE BY PREDFORMING PROVIDER. PATIETN TOLERATED THE PROCEDURE VERY WELL, NO NEED FOR THE VALIUM IV, LIDOCAINE AND PATIENTS OWN TOLERANCE WAS ENOUGH. PATIENT UNDERSTOOD WHAT THE PROCEDURE EVEN WITH ALTERED MENTAL STATUS. AWARE OF PROCEDURE THIS AM AND ANOTHER CALL THIS EVENING PRIOR TO LP. NO CONCERNS FROM THIS OIL WELL DRILLER AT THIS TIME.
[2022-06-12 18:58] LABS: RBC Count, CSF 520 /mm3 (0-0)
[2022-06-12 19:01] LABS: Appearance, CSF Clear (Clear); Color, CSF No Color (No Color)
[2022-06-12 19:19] LABS: Lymphocytes, CSF 81 % (40-80); Monocytes, CSF 18 % (15-45); Neutrophils, CSF 1 % (0-6)
[2022-06-12 20:27] LABS: Cryptococcus Neoformans/Gattii Not Detected (NOT DETECT); Enterovirus Not Detected (NOT DETECT); Escherichia Coli K1 Not Detected (NOT DETECT); Haemophilus Influenza Not Detected (NOT DETECT); Herpes Simplex Virus 1 Not Detected (NOT DETECT); Herpes Simplex Virus 2 Not Detected (NOT DETECT); Human Herpesvirus 6 Not Detected (NOT DETECT); Human Parechovirus Not Detected (NOT DETECT); Listeria Monocytogenes Not Detected (NOT DETECT); Neisseria Meningitidis Not Detected (NOT DETECT); Streptococcus Agalactiae Not Detected (NOT DETECT); Streptococcus Pneumoniae Not Detected (NOT DETECT); Varicella Zoster Virus Detected (NOT DETECT)
--- NOTE | 2022-06-13 06:26 | NUR ---
INTERNET PROJECT MANAGER SUMMARY PT REMAINS ALERT TO SELF BUT HE BELIVES HE IS IN [facility] BUT DID NOT KNOW THAT HE WAS IN THE HOSPITAL OR WHY HE IS HERE. PT'S BP WAS ELEVATED THIS SHIFT W SBP IN THE 160'S SO HYDRALAZINE WAS GIVEN X1 AND HIS SBP REMAINED IN THE 140'S. O2 SATS >90% ON RM AIR. PT AFEBRILE THIS SHIFT. PT'S ESTEVEZ PATENT AND DRAINING 1800ML DARK YODIT URINE THIS SHIFT. ALTHOUGH HE IS VERY CONFUSED STILL HE IS MUCH MORE ALERT THIS AM SITTING UP IN BED WATCHING TV. WILL REPORT TO ONCOMING RN.
--- NOTE | 2022-06-13 07:15 | NUR ---
Received report from Noc RN. Patient laying supine in bed with HOB at 30 degrees and is on RA with sats >90%. He is alert to self, city, building and family he lives with. He is in tuff cuffs as he pulls at lines and tubes and will wean off today as he feels more oriented. He has 18ga IV in LESLEY and is WNL and is infusing NS at TKO. he has 16Fr temp henderson and temp wire cut and has clear yellow urine in adequate amounts. He tolerated sips of water without difficulty.He is intermittently ventrical paced in the 70's and BP 125/70 with MAP >65. He is able to MAEW. He is in attends r/t incontinence. Reviewed call systems and not to pull at lines and tubes when out of room.
--- NOTE | 2022-06-13 08:00 | NUR ---
Recieved report from Noc RN. Patient is sitting up in bed awake and is able to communicate his needs. he is on 2L via NC and sats 97% at rest. He has RAC 18ga IV with NS at 100 ml/hr. He uses urinal appropriately and has clear yellow urine output and there was 300 mls. I placed him on RA and has been satting 93-95%.He is NPO until ST evals. BETTS but weak.
--- NOTE | 2022-06-13 09:30 | NUR ---
Pulled patient up in bed and changed chucks and attends. I removed restraints at 0900 and patient has been doing well. He is resting and will continue to monitor. Dr Chapman has LaTherm no tele. His shingles to left flank are mostly scabbed over unless he has rubbed or scratched and had CN verify to contact only on isolation. he tolerated breakfast with setup and fed self and took pills whole without difficulty.
--- NOTE | 2022-06-13 11:37 | NUR ---
Called and updated family. No significant changes with patient. ST has been in and upgraded to [facility] soft. He has been sleeping since breakfast. Lawrence remains patent and has yellow output. He remains out of restraints and has not been pulling at anything. VSS
--- NOTE | 2022-06-13 13:56 | NUR ---
Patient family came out and stated patient was c/o arthritis pain in upper extremities and needed something. Repositioned patient and medicated for pain. Asked patient if needing anything several times and really gave no answer regardless of rephraseing. I told family if he asks let me know and will get. VSS. his upper extremities he was swinging around stating painful with out anything touching them. Call into for his home meds for arthritis.
[2022-06-13 14:11] LABS: ALBUMIN 3.4 g/dL (2.9-4.4); ALPHA-1-GLOBULIN 0.3 g/dL (0.0-0.4); ALPHA-2-GLOBULIN 0.8 g/dL (0.4-1.0); BETA GLOBULIN 0.8 g/dL (0.7-1.3); GAMMA GLOBULIN 1.6 g/dL (0.4-1.8); GLOBULIN, TOTAL 3.5 g/dL (2.2-3.9); M-SPIKE Not Observed g/dL (Not Observed); PROTEIN, TOTAL, SERUM 6.9 g/dL (6.0-8.5)
--- NOTE | 2022-06-13 16:00 | NUR ---
Spoke with Dr Chapman and changed pain medications up. His left lower forearm is very tender and slightly swollen. Calling Dr Chapman again for imaging to verify that he did not hurt with restraints on. he fidgets with sheets and henderson zeng and replaced securement device. Family went home shortly before.
--- NOTE | 2022-06-13 17:39 | NUR ---
Patient states really tender left wrist and forearm and called Dr Chapman for xray and awaiting read, but saw nothing obvious. He needs to be reminded not to pull on henderson and follow directions for short period. He has small amounts of ramesh tinted urine from pulling at drain tube , securement device intact. Placed blanket over albin area and has left alone briefly and now he has been setup for dinner and is occupied with that. He remains on RA and sats >90%. VSS, ROXANE weakly, very gaurding of left forearm.
--- NOTE | 2022-06-13 20:00 | NUR ---
ASSUMED CARE OF PT AT 1915. REPORT RECEIVED. PT PRESENTS IN BED. ALERT AND CONFUSED. NON TANGENT WITH CONVERSATION. DOES PULL AT CATHETER SECURE DEVICE. NEEDS TO BE REMINDED NOT TO PULL AT CATHETER OR SECUREMENT. PT URINE OUTPUT CONCENTRATED. WILL REVIEW CHART AND PLAN OF CARE FOR PT.
--- NOTE | 2022-06-13 23:00 | NUR ---
IV AT RIGHT UPPER ARM WAS DC'D SECONDARY TO BEING DAY FOUR. SOME REDNESS NOTED. PLACED 20 GAUGE TO RIGHT FOREARM. STAYING AWAYE FROM USING LEFT ARM SECONDARY TO SWELLING AND SOME REDNESS TO FOREARM. PT AGAIN NEEDS TO BE REMINDED NOT TO PULL AT CATHETER, OR DRESSING OVER IV.
--- NOTE | 2022-06-14 05:22 | NUR ---
IV AT RIGHT FOREARM UNFORTUNATELY BECOMES INFILTRATED. DID OPT TO PLACE 18 GAUGE 2.5 INCH PERIPHERAL IV IN RIGHT BASILLIC VEIN. NEEDED ASSIST FROM PATIENT INTERNATIONAL REPRESENTATIVE TO HOLD PT'S ARM TO PREVENT MOVEMENT. PT DOES NOT FOLLOW DIRECTION READILY. DID SECURE NEW IV WITH COBAN. PT HAS BEEN INCONTINENT TO STOOL THIS NIGHT. WHEN REPOSITIONING PT Q 2 HOURS. HE QUICKLY TURNS HIMSELF OFF THE SIDE HE WAS TURNED. SECONDARY TO FREQUENT SELF TURNING IN BED, WILL ASSIST WITH TURNS IF NEEDED. WILL CONTINUE TO MONITOR PT, AND WILL REPORT OFF TO ONCOMING RN.
--- NOTE | 2022-06-14 09:03 | NUR ---
ASSUMED CARE REPORT FROM ADRIANNE SUMNER AT 0700. PT RESTING IN BED. WAKES c VERBAL STIMULI. INTERMITTANTLY INCOHERANT, GARBLED, RAMBLING SPEECH. VISUAL AND AUDITORY HALLUCINATIONS. RESPONSES TO NAME. DOES NOT ANSWER QUESTIONS APPROPRIATELY. FOLLOWS SIMPLE COMMANDS c FREQUENT REDIRECT. REACHES OUT AND GRABS STAFF. GETS AGITATED c CARE. DR ELLIOTT AT BEDSIDE. WILL UPDATE FAMILY ON NEURO CHANGES SINCE YESTERDAY. ASSISTED c MEAL, ATE SMALL AMOUNT. PILLS c APPLESAUCE. ESTEVEZ REMOVED. VSS. WILL CONTINUE TO MONITOR.
--- NOTE | 2022-06-14 17:32 | NUR ---
SHIFT SUMMARY NO ACUTE CHANGES THIS SHIFT. PT CONTINUES TO BE CONFUSED, ORIENTED TO SELF ONLY. DIFFICULT TO GET HIM TO FOLLOW SIMPLE COMMANDS. AUDITORY AND VISUAL HALLUNCIATIONS. INCOHERANT SPEECH. IRRITABLE c CARE AT TIMES. POOR PO INTAKE. ESTEVEZ D/C'D THIS SHIFT, BLADDER SCANNED, 450 ML, STRAIGHT CATH'D, 400 ML OUT. ENCOURAGED URINAL USE UNSUCCESSFULLY. MAEW. VSS. ACYCLOVIR IV CONTINUED ORDERED. WILL CONTINUE TO MONITOR UNTIL REPORT TO ONCOMING NURSE.
[2022-06-15 03:47] LABS: Hematocrit 36.1 % (37.0-53.0); Hemoglobin 12.4 g/dL (13.5-17.5); Mean Corpuscular HGB 29.5 pg (26.0-34.0); Mean Corpuscular HGB Conc 34.3 g/dL (31.5-36.5); Mean Corpuscular Volume 86 fL (80-100); Platelet Count 224 K/mm3 (150-400); RDW Coefficient Variation 15.6 % (11.7-14.2); RDW Standard Deviation 48.1 fL (35.1-46.3); Red Blood Cell Count 4.21 M/mm3 (4.30-5.90); White Blood Cell Count 10.72 K/mm3 (4.00-11.30)
[2022-06-15 04:19] LABS: Bun/Creatinine Ratio 10.7 (12.0-20.0); Calcium, Blood 8.5 mg/dL (8.5-10.1); Creatinine, Blood 3.66 mg/dL (0.60-1.20); Potassium, Blood 3.7 mmol/L (3.5-5.5)
[2022-06-15 05:23] LABS: BASOPHILS PERCENT MAN 0 % (0-2); EOSINOPHILS PERCENT MAN 0 % (0-6); LYMPHOCYTES ABSOLUTE MAN 0.53 K/mm3 (0.84-5.20); LYMPHOCYTES PERCENT MAN 5 % (21-46); MONOCYTES ABSOLUTE MAN 1.82 K/mm3 (0.16-1.47); MONOCYTES PERCENT MAN 17 % (4-13); NEUTROPHILS ABSOLUTE MAN 8.36 K/mm3 (1.96-9.15); SEG NEUTROPHILS PERCENT MAN 78 % (41-73); TOTAL CELLS COUNTED 100
--- NOTE | 2022-06-15 06:37 | NUR ---
CALL TO HOSPITALIST RESIDENT DR. STOVALL. ESTEVEZ CATHETER D/C'D YESTERDAY DUE TO PHYSICIAN'S CONCERN THAT THE PATIENT MAY PULL OUT THE CATHETER, PER CHANGE OF SHIFT RN REPORT. PT CONTINUES TO RETAIN URINE IN HIS BLADDER. HE HAS NOT URINATED ON HIS OWN SINCE THE CATHETER WAS DISCONTINUED AND HAS HAD TO HAVE A STRAIGHT CATHETER INSERTED TWICE TO DRAIN HIS BLADDER. ON THE THIRD ATTEMPT, A TOTAL OF 1225 mL OF URINE DRAINED FROM THE BLADDER. I RECEIVED AN ORDER TO PLACE A ESTEVEZ CATHETER FOR URINE RETENTION. REVIEW OF THIS MORNING'S MORNING LABS REVEAL SODIUM CONTINUING TO TREND DOWN (CURRENTLY 132) FROM THE June, CREATININE INCREASED FROM 0.57 TO 3.66, GFR DECREASED FROM 100 TO 16. PT'S MENTTATION HAS REGRESSED FROM THE LAST SHIFT THIS PATIENT WAS IN MY CARE ON June. AT THAT TIME HE WAS FOLLOWING COMMANDS, SPEAKING AND OPENING HIS EYES SPONTANEOUSLY. OVERNIGHT HE CONTINUED YESTERDAY'S STATUS OF NOT FOLLOWING COMMANDS, BARELY SPEAKING AND KEEPING HIS EYES. CLOSED. ORDERS RECEIVED TO PLACE ESTEVEZ CATHETER AND TO INFUSE 1 LITER OF NORMAL SALINE. CATHETER INSERTED SUCCESSFULLY AND IV FLUIDS INFUSING. WILL CONTINUE TO MONITOR.
--- NOTE | 2022-06-15 14:12 | NUR ---
UPDATE ROUNDED ON PT AND FAMILY AT THE BEDSIDE. PT BREATHING APPEARS LESS LABORED AND LESS ERRATIC AND JAW NO LONGER CLINCHED. PT FAMILY REPORTS "HE SEEMS LIKE HE IS MORE CALM NOW." WILL CONTINUE TO MONITOR.
--- NOTE | 2022-06-15 17:14 | NUR ---
SHIFT SUMMARY PT NOT AROUSABLE THROUGHOUT SHIFT. AT BEGINNING OF SHIFT, PT NOT RESPONDING TO SOUND OR PAIN STIMULI. PT EYES HAD TO BE FORCED OPEN BY THIS RN TO CHECK PUPIL REPONSE, PT WOULD TRACK LIGHT WHEN EYE LIDS HELD OPEN. PT NOT RESPONDING TO QUESTIONS OR INSTRUCTIONS. PT WOULD WITHDRAW ARMS AND LEGS WHEN BEING MOVED BUT NOT WITH PAIN STIMULI. PT GIVEN ATIVAN AND KEPPRA PER DR ORDERS. AFTER RECIEVING ATIVAN AND KEPPRA, PT JAW NO LONGER CLINCHED SO TIGHT AND PT NOT WITHDRAWING ARMS AND LEGS FREQUENT. PT STILL UNABLE TO RESPOND TO STIMULI. PT HAS NS RUNNING PER EMAR. PT HAS ESTEVEZ IN PLACE DRAINING TO GRAVITY, YELLOW URINE. FAMILY WAS AT BEDSIDE WITH PT, FAMILY UPDATED BY DR TODAY. RESPIRATION TACHY DURING SHIFT. OTHER VSS THROUGHOUT SHIFT.
--- NOTE | 2022-06-15 19:45 | NUR ---
CALL TO HOSPITALIST RESIDENT DR. STOVALL. 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 MELARA IS NOW STRICT NPO. PT HAS ORAL PREDNISONE ORDERED FOR TREATMENT OF ARTHRITIS ASSOCIATED SWELLING TO LUE AND ORAL ELIQUIS FOR DVT PROPHYLAXIS IN PATIENT WITH HISTORY OF ATRIAL FIBRILLATION. I ASKED IF WE WANT TO SWITCH THESE MEDICATIONS TO AN IV PUSH ALTERNATIVE. PER DR. STOVALL, WILL DEFER TO PRIMARY TEAM TO MAKE DECISION REGARDING BOTH OF THESE MEDICATIONS TOMORROW ON DAY SHIFT. SCDS IN PLACE
--- NOTE | 2022-06-15 19:51 | NUR ---
review of pt this morning. pt clencing jaw and arm pulled in tight and minor tremeor hands pulling towards core. subtle tremor. gandushgter at bedside. Brief interaction iwht her to visit with him. Advised of possible seisure and worsening condition. Advised we will talk about future care. updated physician. Will try for family meeting to discuss code status again.
--- NOTE | 2022-06-15 21:30 | NUR ---
CALLED RT TAMI HUSSEIN. NEW FINDING OF WHEEZING WHEN AUSCULTATING LUNGS. REQUEST FOR RT TO EVALUATE PATIENT.
--- NOTE | 2022-06-16 02:06 | NUR ---
ROUNDING ON PATIENT, FOUND PATIENT TO HAVE A CHANGE IN HIS BREATHING PATTERN. HE WAS TACHYPNEIC, BREATHING INTO THE BELLY, REDUCED AIR MOVEMENT ON THE LEFT VERSUS THE RIGHT AND IN COMPARISON TO PREVIOUS ASSESSMENT, AND WAS BREATHING IN THROUGH HIS NOSE AND OUT THROUGH HIS MOUTH, LIPS POUCHING OUT AND MAKING A "FLUBBING" NOISE. I ASKED MY CHARGE NURSE KYLEE TO COME TO THE BEDSIDE TO ASSESS THE PATIENT AND SHE OBSERVED SIMILAR FINDINGS. KYLEE CALLED RT TAMI TO THE BEDSIDE. WE DISCUSSED REQUESTING A CHEST XRAY AND VBG TO GET A BETTER OVERAL PICTURE OF HIS RESPIRATORY FUNCTION. CALL TO HOSPITALIST RESIDENT DR. STOVALL. ORDER RECEIVED FOR CHEST XRAY AND VBG
[2022-06-16 02:47] LABS: Hematocrit 35.4 % (37.0-53.0); Mean Corpuscular HGB 29.8 pg (26.0-34.0); Mean Corpuscular HGB Conc 33.9 g/dL (31.5-36.5); Mean Corpuscular Volume 88 fL (80-100); Mean Platelet Volume 12.9 fL (9.1-12.4); Platelet Count 210 K/mm3 (150-400); RDW Standard Deviation 50.9 fL (35.1-46.3); Red Blood Cell Count 4.03 M/mm3 (4.30-5.90); White Blood Cell Count 8.93 K/mm3 (4.00-11.30)
--- NOTE | 2022-06-16 02:47 | NUR ---
CALL TO HOSPITALIST RESIDENT DR. STOVALL REQUESTING REVIEW OF STAT CHEST X-RAY. PER MD STOVALL, XRAY LOOKS BETTER WHEN COMPARED TO XRAY ON 06/08/22. HE IS GOING TO CONSULT WITH DR. JANE AND GET BACK TO ME WITH ANY CHANGES TO TREATMENT PLAN.
[2022-06-16 02:50] LABS: Base Excess Venous -5.8 mmol/L; Bicarbonate Venous 20.5 mmol/L (24.0-30.0); PCO2 Venous 29.4 mmHg (38-42); pH Blood Venous 7.41 (7.34-7.37)
[2022-06-16 03:06] LABS: Bun/Creatinine Ratio 12.9 (12.0-20.0); Calcium, Blood 8.5 mg/dL (8.5-10.1); Creatinine, Blood 3.42 mg/dL (0.60-1.20); Potassium, Blood 3.8 mmol/L (3.5-5.5)
--- NOTE | 2022-06-16 03:13 | NUR ---
CALL FROM DR. STOVALL, PER CONSULTATION WITH DR. JANE NO NEW ORDERS AT THIS TIME. NEITHER PHYSICIAN NOTED A SIGNIFICANT CHANGE WHEN COMPARING CHEST XRAYS FROM 06/08/22 AND TODAY. WILL CONTINUE TO MONITOR.
[2022-06-16 11:20] LABS: Source, Urine Foley catheter
[2022-06-16 11:36] LABS: Appearance, Urine Clear (Clear); Bilirubin, Urine Neg (Neg); Blood, Urine 3+ (Neg); Color, Urine Yellow (P-Yellow); Glucose Qualitative, Urine Neg (Neg); Ketones, Urine Neg (Neg); Leukocyte Esterase, Urine 2+ (Neg); Nitrite, Urine Neg (Neg); Protein, Urine 1+ (Neg); Specific Gravity, Urine 1.015 (1.003-1.022); Urobilinogen, Urine NORM (Normal)
--- NOTE | 2022-06-16 11:38 | NUR ---
UPDATE EEG PROCEDURE BEING PERFORMED IN PT ROOM.
[2022-06-16 11:45] LABS: WBC Cast 0-2 /lpf (0)
[2022-06-16 11:46] LABS: Bacteria Mod /hpf; Squamous Epithelial Cells Rare /hpf (Few)
--- NOTE | 2022-06-16 13:06 | NUR ---
UPDATE EEG PROCEDURE DONE. PT FAMILY AT BEDSIDE AND UPDATED ON PT.
--- NOTE | 2022-06-16 14:22 | NUR ---
ROUNDED ON PT. PT FAMILY AT BEDSIDE. FAMILY UPDATED .
--- NOTE | 2022-06-16 16:30 | NUR ---
SHIFT SUMMARY VSS THROUGHOUT SHIFT WITH SATS IN THE 90'S ON RA. PT WITHDRAWING FROM PAIN STIMULI WHICH HE DID NOT DO YESTERDAY. PT EXTREMITIES NOT RIGID TODAY LIKE THY WERE YESTERDAY. EEG PERFORMED IN PT ROOM, AWAITING RESULTS. WHEN STIMULATED BY PENLIGHT ON INDEX FINGER, PT WITHDREW HAND AND SAID "OWWW". PT HAD PERIODS WHERE HE WOULD PULL HIS ARM AWAY AND MOVE IT BACK TO THE POSITION IT WAS MOVED FROM, THIS MOVEMENT APPEARED TO BE A MORE MEANINGFUL MOVEMENT. WITH SOME VERBAL STIMULI PT WOULD MOAN MORE FREQUENTLY. FAMILY WAS AT BEDSIDE AFTER EEG WAS FINISHED, FAMILY UPDATED ON THIS RN ASSESSMENTS. NS RUNNING PER EMAR. HERB IN PLACE DRAINING TO GRAVITY, UA COLLECTED TODAY.
--- NOTE | 2022-06-16 17:33 | NUR ---
Nursing reports some increase in responsiveness and less sighns of seizures. Nursing states in there begging him to wake up. Discussed family with chaplian. Did not speak to family. Palliative paln is to to see what eeg shows and how he responds to seizure medications and to see what physician reccomends then speak with family about prognosis. Will revisit code status.
[2022-06-17 04:07] LABS: Hematocrit 39.2 % (37.0-53.0); Hemoglobin 12.8 g/dL (13.5-17.5); Mean Corpuscular HGB 29.6 pg (26.0-34.0); Mean Corpuscular HGB Conc 32.7 g/dL (31.5-36.5); Mean Corpuscular Volume 91 fL (80-100); Mean Platelet Volume 12.5 fL (9.1-12.4); Platelet Count 253 K/mm3 (150-400); RDW Coefficient Variation 16.6 % (11.7-14.2); RDW Standard Deviation 54.3 fL (35.1-46.3); Red Blood Cell Count 4.33 M/mm3 (4.30-5.90); White Blood Cell Count 6.05 K/mm3 (4.00-11.30)
[2022-06-17 04:34] LABS: Bun/Creatinine Ratio 20.3 (12.0-20.0); Calcium, Blood 8.7 mg/dL (8.5-10.1); Creatinine, Blood 1.97 mg/dL (0.60-1.20); Potassium, Blood 3.6 mmol/L (3.5-5.5)
--- NOTE | 2022-06-17 06:19 | NUR ---
IMPROVED NEUROLOGICAL STATUS OVERNIGHT. MR. MELARA IS NOW TURNING HIS HEAD TOWARD MY VOICE WHEN I SPEAK TO HIM, HE IS OPENING HIS EYES JUST SLIGHTLY BUT STILL HAS SIGNIFICANT APRAXIA OF THE EYEDLIDS. HE IS FOLLOWING COMMANDS INTERMITTENTLY, AND WAS MORE COOPERATIVE WITH THE 0600 ORAL CARE IN THAT HE DID NOT BITE DOWN ON THE SUCTION TOOTHETTE HE DID WITH LAST NIGHT'S SESSION. IV FLUIDS (0.9% SODIUM CHLORIDE) WERE PLACED ON HOLD PENDING REVIEW OF THE ORDER DUE TO CONCERNS REGARDING THE PATIENT'S NOW ELEVATED SERUM SODIUM LEVEL AND AN INCREASE OF 16 IN HIS SERUM SODIUM IN THE PAST 48 HOURS.
--- NOTE | 2022-06-17 13:07 | NUR ---
Met with pt's , daughter and a couple of family friends at the bedside. The pt remains non-responsive today. His continues to hold his hands crying, "Baby wake up, please wake up" several times when addressing pt. While talking with , I gently asked her about pt's code status. I apologized for the timing of the question, but she states she understands why I have to. She states, He would never want a machine breathing for him or be fed by a tube". She remains tearful, but does appear to enjoy visiting with their friends at the bedside. No further conversation at this time. Received T/O from Dr. Bunch for DNR.
--- NOTE | 2022-06-17 16:16 | NUR ---
SHIFT SUMMARY PT OPENS EYES SLIGHTLY AND SOMETIMES TRACKS SOUNDS. THIS MORNING DURING ORAL CARE PT BIT DOWN ON YANKAUER, PT OPENED MOUTH AFTER BEING ASKED TO DO SO. OTHER ATTEMPTS OF ORAL CARE, PT CLINCHED LIPS CLOSED IN ATTEMPT TO PREVENT BRUSH OR YANKAUER OF ENTERING MOUTH. PT HAS BEEN MOVING ALL EXTREMITIES DURING SHIFT THOUGH HE IS TRYING TO GET MORE COMFORTABLE. PT STILL PULLS ARMS AWAY WHEN HIS ARMS ARE BEING MOVED BY STAFF. LESS MOANING FROM PT TODAY COMPARED TO YESTERDAY. PT HAS HAD PERIODS OF CLINCHING HANDS CLOSED THOUGH HE IS TRYING TO GRAB THISNGS, DOES NOT ATTEMPT TO SQUEEZE THIS RN FINGERS WHEN ASKED TO DO SO. PT BP'S WERE ELEVATED THIS MORNING, TREATED PER EMAR. BP'S MORE STABLE REST OF SHIFT. PT RESPONDING TO PAIN STIMULI BY WITHDRAWING. PT RESP RATE INCREASES WITH MOST STIMULI, RATE RANGES 22-28 BPM. OTHER VSS THROUGHOUT SHIFT. FAMILY UPDATED TODAY WHEN VISITING PT. PT GAVE PERMISSION TO UPDATE ANYONE WHO COMES TO VISIT AND ASKING FOR UPDATES, PERMISSION FORM SIGNED AND IN CHART. ESTEVEZ IN PLACE DRAINING TO GRAVITY, YELLOW URINE. PT HAS AUDIBLE RASP WHEN BREATHING AT TIMES, PT BITES YANKAUER EXTREMLEY HARD WHEN ATTEMPTING SUCTION.
[2022-06-18 04:22] LABS: Hematocrit 40.1 % (37.0-53.0); Mean Corpuscular HGB 29.7 pg (26.0-34.0); Mean Corpuscular HGB Conc 32.4 g/dL (31.5-36.5); Mean Corpuscular Volume 92 fL (80-100); Mean Platelet Volume 11.7 fL (9.1-12.4); Platelet Count 283 K/mm3 (150-400); RDW Coefficient Variation 16.7 % (11.7-14.2); RDW Standard Deviation 55.7 fL (35.1-46.3); Red Blood Cell Count 4.37 M/mm3 (4.30-5.90); White Blood Cell Count 4.51 K/mm3 (4.00-11.30)
[2022-06-18 04:43] LABS: Bun/Creatinine Ratio 22.4 (12.0-20.0); Calcium, Blood 8.9 mg/dL (8.5-10.1); Creatinine, Blood 1.25 mg/dL (0.60-1.20); Potassium, Blood 3.1 mmol/L (3.5-5.5)
--- NOTE | 2022-06-18 05:17 | NUR ---
CALL TO HOSPITALIST MD JANE. SERUM SODIUM INCREASED FROM 148 TO 154 IN PAST 24 HOURS. POTASSIUM IS 3.1 IMPROVEMENT IN CREATININE - DECREASED FROM 1.97 TO 1.25 D5W + 0.45% SODIUM CHLORIDE INFUSING AT 75 mL PER HOUR. PATIENT HAD 0.9% SODIUM CHLORIDE INFUSING FOR 48 HOURS BEGINNING ON 06/15/22. IV FLUIDS WERE STARTED ON 06/15/22 DUE TO AN ELEVATED CREATININE OF 3.66. THAT ORDER WAS CHANGED TO D5W + 0.45% NaCl ON 06/17/22. REQUEST FOR DIRECTION REGARDING THE IV FLUIDS CONSIDERING THE SERUM SODIUM LEVEL AND REPLACEMENT FOR POTASSIUM DEPLETION. CALL MADE - AWAITING RETURN CALL FROM PHYSICIAN AT THIS TIME.
--- NOTE | 2022-06-18 14:59 | NUR ---
Pt continues to receive visitors often, and no changes to his condition today. Bedside RN reports he did open his eyes very slightly this am but nothing else to report at this time. Will continue with supportive visits.
--- NOTE | 2022-06-18 16:37 | NUR ---
Spoke to pt's , son and daughter by phone this evening. Marcy, the pt's states today was a better day, and she states pt was opening his eyes and attempting to communicate. However, pt's son called back and states he isn't sure that is accurate, and believes the stress may be "getting to" his mom. He states he's "more realistic" than his mom or sister, stating he is "pretty sure he knows where this is heading". Plan to discuss possible IV feeding tomorrow with physician. Palliative will remain available to family.
--- NOTE | 2022-06-18 18:25 | NUR ---
SHIFT SUMMARY PT ONLY BARELY OPENED EYES TO VERBAL OR PRESSURE STIMULI 3 TIMES THIS SHIFT. HE DID NOT COMMUNICATE AT ALL EXECPT ONCE WHEN HE SAID "I LOVE YOU" BACK TO HIS DAUGHTER, FAMILY OR STAFF WAS NOT ABLE TO GET HIM TO SAY ANYTHING ELSE AFTER THAT. SpO2> 92% 2L NC, PT WAS TACHYPNEIC WITH RR IN THE 20'S THROUGHOUT THE SHIFT. BP ELEVATED WITH SBP IN THE 150's. A-FIB, 80-110'S WITH PVC's. BEGAN DISCUSSING NUTRITION OPTIONS WITH DR. AARON AND [facility] CARE NURSE WITH PLANS TO BRING PRESENT OPTIONS TO FAMILY WITHIN THE NEXT FEW DAYS AFTER GETTING A DIETARY CONSULT.
--- NOTE | 2022-06-18 20:05 | NUR ---
ASSESSMENT/ASSUMED CARE PT LAYING IN BED WITH EYES CLOSED. OPENS EYES TO VERBAL STIMULI. WHEN NAME CALLED PT SAYS,"YES". ONLY WORD SAID, SPEECH CLEAR. PT NOT ANSWERING QUESTIONS. NOT FOLLOWING INSTRUCTIONS. LUNGS CLEAR BUT DECREASED IN BASES ON 2 LITERS O2 VIA NC. RESP EVEN AND NONLABORED. SPO2 95%. HEART RATE IRREGULAR- AFIB, WITH OCC PACED RHYTHM. BP STABLE. NO EDEMA. GROSS MOTOR MOVEMENT TO EXT NOTED. BT+. ATTENDS CD&I. ESTEVEZ CATH PATENT DRAINING DARK YELLOW/YODIT URINE. IV 20G TO LEFT WRIST WITH NS AT 25 ML/HR FOR ANTIBIOTICS, SITE CLEAR. IV 20G TO LEFT WRIST/FOREARM WITH D5 AT 75 ML/HR OR 500ML. SITE CLEAR. PT REPOSITIONED WITH PILLOWS UNDER LEFT KNEE/HIP AND PILLOWS TO RIGHT BACK. PT PUSHES AGAINST STAFF AND RAIL WHEN TURNED. PT NPO WILL HOLD HS MEDS.
--- NOTE | 2022-06-19 03:32 | NUR ---
HTN BP 170/111 (123) HEART RATE 64 MED WITH HYDRALAZINE 10MG
[2022-06-19 04:37] LABS: Hematocrit 40.4 % (37.0-53.0); Mean Corpuscular HGB 29.7 pg (26.0-34.0); Mean Corpuscular HGB Conc 32.2 g/dL (31.5-36.5); Mean Corpuscular Volume 92 fL (80-100); Mean Platelet Volume 11.4 fL (9.1-12.4); Platelet Count 282 K/mm3 (150-400); RDW Coefficient Variation 16.2 % (11.7-14.2); RDW Standard Deviation 53.9 fL (35.1-46.3); Red Blood Cell Count 4.38 M/mm3 (4.30-5.90); White Blood Cell Count 3.84 K/mm3 (4.00-11.30)
[2022-06-19 04:51] LABS: Albumin, Blood 3.1 g/dL (3.4-5.0); Anion Gap 6 mmol/L (6-16); Blood Urea Nitrogen 18 mg/dL (8-24); Bun/Creatinine Ratio 18.4 (12.0-20.0); CO2, Blood 26 mmol/L (21-32); Calcium, Blood 8.6 mg/dL (8.5-10.1); Chloride, Blood 123 mmol/L (98-108); Creatinine, Blood 0.98 mg/dL (0.60-1.20); Glomerular Filtration Rate 78 (60-); Glucose, Blood 116 mg/dL (70-99); Magnesium, Blood 1.4 mg/dL (1.6-2.4); Phosphorus, Blood 2.4 mg/dL (2.5-4.9); Sodium, Blood 155 mmol/L (136-145)
--- NOTE | 2022-06-19 04:57 | NUR ---
LABS CALL TO DR BARRIENTOS REGARDING LABS NA 155, POTASSIUM 3.0, PHOS 2.[address] BARRIENTOS TO PLACE ORDERS.
--- NOTE | 2022-06-19 05:42 | NUR ---
SHIFT SUMMARY PT OPENS EYES TO VERBAL STIMULI. NOT FOLLOWING INSTRUCTIONS. GROSS MOTOR MOVEMENT OF EXT NOTED. TURNED PRN. ESTEVEZ CATH PATENT AND DRAINING. PT MED WITH HYDRALAZINE ONCE FOR HTN. AWAITING POTASSIUM PHOS AND MG FROM [facility]. PO MEDS HELD DUE TO NPO. REPORT TO ON COMING NURSE
--- NOTE | 2022-06-19 17:47 | NUR ---
SHIFT SUMMARY PT MORE ALERT TODAY, OPENED EYES TO VERBAL STIMULI AND WAS TALKING WITH STAFF AND VISITORS. MOST OF HIS COMMUNICATION WAS NON SENSICAL, BUT WAS ABLE TO FOLLOW VERY SIMPLE COMMANDS. ST SAW PT THIS AM KEEPING HIM NPO WITH PLANS TO REEVALUATE HIM AGAIN TOMORROW MORNING. SpO2> 92% ON RA, BP ELEVATED WITH SBP IN THE 150's. A-FIB, 60-90'S WITH PCV's. STARTED CLINIMIX PER ORDER.
[2022-06-20 02:51] LABS: BASOPHILS ABSOLUTE AUTO 0.03 K/mm3 (0.00-0.23); BASOPHILS PERCENT AUTO 1 % (0-2); EOSINOPHILS ABSOLUTE AUTO 0.01 K/mm3 (0.00-0.68); EOSINOPHILS PERCENT AUTO 0 % (0-6); Hematocrit 38.5 % (37.0-53.0); Hemoglobin 12.5 g/dL (13.5-17.5); Mean Corpuscular HGB 29.8 pg (26.0-34.0); Mean Corpuscular HGB Conc 32.5 g/dL (31.5-36.5); Mean Corpuscular Volume 92 fL (80-100); Mean Platelet Volume 11.2 fL (9.1-12.4); Platelet Count 255 K/mm3 (150-400); RDW Coefficient Variation 16.2 % (11.7-14.2); RDW Standard Deviation 54.2 fL (35.1-46.3); White Blood Cell Count 3.62 K/mm3 (4.00-11.30)
[2022-06-20 02:52] LABS: IMMATURE GRAN ABSOLUTE AUTO 0.04 K/mm3 (0.00-0.10); IMMATURE GRAN PERCENT AUTO 1 % (0-1); LYMPHOCYTES ABSOLUTE AUTO 1.25 K/mm3 (0.84-5.20); LYMPHOCYTES PERCENT AUTO 35 % (21-46); MONOCYTES ABSOLUTE AUTO 1.23 K/mm3 (0.16-1.47); MONOCYTES PERCENT AUTO 34 % (4-13); NEUTROPHILS ABSOLUTE AUTO 1.06 K/mm3 (1.96-9.15); NEUTROPHILS PERCENT AUTO 29 % (41-73)
[2022-06-20 03:20] LABS: Albumin, Blood 3.1 g/dL (3.4-5.0); Albumin/Globulin Ratio 0.7 (0.8-1.8); Bilirubin, Total 0.9 mg/dL (0.1-1.0); Calcium, Blood 8.4 mg/dL (8.5-10.1); Creatinine, Blood 0.83 mg/dL (0.60-1.20); Globulin, Blood 4.6 g/dL (2.2-4.0); Magnesium, Blood 1.7 mg/dL (1.6-2.4); Phosphorus, Blood 2.6 mg/dL (2.5-4.9); Potassium, Blood 3.1 mmol/L (3.5-5.5); Total Protein, Blood 7.7 g/dL (6.4-8.2)
--- NOTE | 2022-06-20 04:29 | NUR ---
CALL TO HOSPITALIST RESIDENT FLOYD. AM LABS POTASSIUM IS 3.1, MAGNESIUM 1.7, PHOSPHOROUS 2.6. PT RECEIVED POTASSIUM PHOSPHATE AND MAGNESIUM SULFATE REPLACEMENT YESTERDAY. POTASSIUM REPLACEMENT? DR. BARRIENTOS TO [facility] CHART
--- NOTE | 2022-06-20 06:18 | NUR ---
NO ACUTE EVENTS OVERNIGHT WITH THE EXCEPTION OF ELEVATED BLOOD PRESSURE REQUIRING ADMINISTRATION OF PRN HYDRALAZINE AND DECREASED POTASSIUM REQUIRING REPLACEMENT. MR. MELARA IS MUCH IMPROVED FROM MY PREVIOUS FOOT CASTER WITH HIM ON June WHEN HE WAS BARELY OPENING HIS EYES, NONVERBAL AND FOLLOWING FEW COMMANDS. TONIGHT HE WAS QUITE TALKATIVE WITH ME, AT TIMES RESPONDING APPROPRIATELY IN THE CONVERSATION AND OTHER TIMES HIS RESPONSES HAD NOTHING TO DO WITH THE CONVERSATION BEING HAD. HE WAS ABLE TO TELL ME HIS NAME AND TOLD ME A FEW TIMES, "YOU ARE ONE OF THE BEST DOCTORS IN THIS HOSPITAL," WHICH MAKES ME WONDER IF HE ISN'T AWARE THAT HE IS IN THE HOSPITAL. HE CONTINUES TO TENSE UP AND TO PULL AWAY WITH INTITIAL ATTEMPTS AT CARE AND RANGE OF MOTION. HE DOES EVENTUALLY RELAX AND IS FOLLOWING COMMANDS INTERMITTENTLY. HE RAISED HIS LEFT ARM AND LEFT LEG IN RESPONSE TO MY REQUEST WIHT MY INITIAL ASSESSMENT. ESTEVEZ REMAINS IN PLACE. PT RECEIVED HIS FIRST INFUSION OF CLINIMIX. ANTIBIOTICS, ANTIVIRAL AND KEPPRA INFUSED ORDERED. 40 mEQ OF POTASSIUM CHLORIDE INFUSING NOW DUE TO SERUM POTASSIUM LEVEL OF 3.1 THIS MORNING.
--- NOTE | 2022-06-20 17:42 | NUR ---
SHIFT SUMMARY PT MENTATION CONTINUING TO IMPROVE, A&O TO SELF AND FAMILY. HIS FINE MOTOR CONTROL IS IMPROVING WELL, ABLE TO HOLD USE CUPS APPROPIATELY WITH SUPERVISION, IS BEGINING TO USE UTENSILS. ST CLEAR PT FOR PO INTAKE, TOLERATING MECH. SOFT DIET, WITH FEEDIND ASSITANCE, WELL. PLAN TO CONTINUE PARENTERAL NUTRITION UNTIL PO NUTRITION IS REEVALUATED TOMORROW. SpO2> 92% RA, A-FIB IN THE 60-90's WITH PVC's, BP ELEVATED WITH SBP IN 130-170, DISCUSSED SCHEDULED BP MANAGMENT WITH DR. ELLIOTT, NO ORDERS YET. WILL CONTINUE TO MONITOR AND PROVIDE CARE UNTIL REPORT TO NOC.
[2022-06-21 05:45] LABS: Alanine Aminotransfer (ALT/SGP 44 U/L (12-78); Albumin, Blood 3.1 g/dL (3.4-5.0); Albumin/Globulin Ratio 0.7 (0.8-1.8); Alk Phos 64 U/L (50-136); Anion Gap 4 mmol/L (6-16); Aspartate Aminotrans (AST/SGOT 53 U/L (12-37); Bilirubin, Total 1.3 mg/dL (0.1-1.0); Blood Urea Nitrogen 19 mg/dL (8-24); CO2, Blood 26 mmol/L (21-32); Calcium, Blood 8.5 mg/dL (8.5-10.1); Chloride, Blood 120 mmol/L (98-108); Creatinine, Blood 0.63 mg/dL (0.60-1.20); Globulin, Blood 4.5 g/dL (2.2-4.0); Glomerular Filtration Rate 97 (60-); Glucose, Blood 107 mg/dL (70-99); Magnesium, Blood 1.7 mg/dL (1.6-2.4); Phosphorus, Blood 2.7 mg/dL (2.5-4.9); Potassium, Blood 3.2 mmol/L (3.5-5.5); Sodium, Blood 150 mmol/L (136-145); Total Protein, Blood 7.6 g/dL (6.4-8.2); Triglycerides 82 mg/dL (30-160)
--- NOTE | 2022-06-21 05:54 | NUR ---
SHIFT SUMMARY PT ALERT, CONFUSED. DID NOT SLEEP AT ALL. SP02>90% ON RA. MEDICAL STATUS, NO TELE. ELEVATED BP THIS SHIFT, HYDRALAZINE GIVEN PER EMAR X1 TO SUCCESSFULLY LOWER BP. PT DENIED PAIN. ESTEVEZ CATHETER DRAINING CLEAR YELLOW URINE TO GRAVITY. NO BM THIS SHIFT. SCD'S ON DURING FIRST HALF OF SHIFT. FLUIDS INFUSING PER EMAR. CALL LIGHT IN REACH.
--- NOTE | 2022-06-21 08:15 | NUR ---
ASSUMPTION OF CARE NEO SUMNER AND MENA SUMNER ASSUMED CARE OF PATIENT AT 0700. REPORT TAKEN FROM URMILA SUMNER. PT RESTING COMFORTABLY WITH VSS. SPEECH THERAPY TO BEDSIDE TO WORK WITH PATIENT WITH BREAKFAST. RAILS UP, CALL LIGHT IN REACH, BED IN LOWEST POSITION.
--- NOTE | 2022-06-21 11:19 | NUR ---
TRANSFER OF CARE REPORT GIVEN TO DEJA SUMNER WHO WILL ASSUME CARE OF PATIENT. PATIENT TO BE TRANSFERRED TO MEDICAL FLOOR BY DEJA SUMNER.
--- NOTE | 2022-06-21 11:57 | NUR ---
ASSUMPTION OF CARE NOTE THIS NURSE ASSUMED CARE AT APPORX. 1110, PT TRANSFERED TO MEDICAL FLOOR RM 332 AT APPROX. 1140 WITH ALL OF BELONGINS. AND DAUGHTER ARE AT BEDSIDE. PT IS NOT ORIENTED TO PERSON, PLACE, TIME OR SITUATION BUT IS PLEASANTLY CONFUSED. HE DENIES FEELINGS OF PAIN.
--- NOTE | 2022-06-21 19:28 | NUR ---
SHIFT SUMMARY PT ALERT TO SELF ONLY AND IS CONFUSED BUT IS PLEASANT AND COOPERATIVE WITH CARE. VITAL SIGNS STABLE, PT ON ROOM AIR AND SPO2 >95%. HE DENIED PAIN INCLUDING CHEST PAIN/PRESSURE. FAMILY WAS AT BEDSIDE DURING SHIFT. PICC IN [facility] IS INFUSING CLINIMIX AND LIPIDS PER EMAR ORDERS. IV'S IN LEFT HAND/FOREARM ARE SALINE LOCKED. ESTEVEZ CATHETER IS IN PLACE AND DRAINING DARK YELLOW OUTPUT. Q2 TURNS IMPLIMENTED TO KEEP OFF OF PRESSURE POINTS. NO ACUTE CHANGES NOTED DURING SHIFT. REPORT GIVEN TO TEN SUMNER.
--- NOTE | 2022-06-22 03:49 | NUR ---
SHIFT SUMMARY NO ACUTE CHANGES OVER NIGHT. PT SLEPT WELL. CLINAMIX STILL RUNNING. PT WAS SLOW TO ANSWER QUESTIONS, BUT AWAKENED WHEN HIS NAME WAS CALLED. ESTEVEZ PATENT AND DRAINING LIGHT YELLOW URINE. PT HAS BEEN CALM AND COOPERATIVE. BED IN LWOEST POSITION AND CALL LIGHT IN REACH
[2022-06-22 05:44] LABS: BASOPHILS ABSOLUTE AUTO 0.03 K/mm3 (0.00-0.23); BASOPHILS PERCENT AUTO 1 % (0-2); EOSINOPHILS ABSOLUTE AUTO 0.02 K/mm3 (0.00-0.68); EOSINOPHILS PERCENT AUTO 1 % (0-6); Hematocrit 37.2 % (37.0-53.0); IMMATURE GRAN ABSOLUTE AUTO 0.05 K/mm3 (0.00-0.10); IMMATURE GRAN PERCENT AUTO 1 % (0-1); LYMPHOCYTES ABSOLUTE AUTO 1.29 K/mm3 (0.84-5.20); LYMPHOCYTES PERCENT AUTO 32 % (21-46); MONOCYTES PERCENT AUTO 28 % (4-13); Mean Corpuscular HGB 29.6 pg (26.0-34.0); Mean Corpuscular HGB Conc 32.3 g/dL (31.5-36.5); Mean Corpuscular Volume 92 fL (80-100); NEUTROPHILS ABSOLUTE AUTO 1.51 K/mm3 (1.96-9.15); NEUTROPHILS PERCENT AUTO 38 % (41-73); Platelet Count 256 K/mm3 (150-400); RDW Standard Deviation 53.2 fL (35.1-46.3); Red Blood Cell Count 4.06 M/mm3 (4.30-5.90)
[2022-06-22 06:12] LABS: Bun/Creatinine Ratio 28.9 (12.0-20.0); Calcium, Blood 8.5 mg/dL (8.5-10.1); Creatinine, Blood 0.83 mg/dL (0.60-1.20); Potassium, Blood 3.4 mmol/L (3.5-5.5)
--- NOTE | 2022-06-22 17:54 | NUR ---
DAYSHIFT SUMMARY Patient oriented to self, unable to answer questions appropriately. Worked with therapy, extensive assist. This afternoon patient leaning over the side of the bed, trying to get OOB. Patient weight, pulling on staff to sit him up in bed. IV Clinmex, Lipids running continously. BP high, PRN Hydralazine given, PRN effective. Patient transferred to SCU to be monitored closer for safety, due to high fall risk. Handoff report given to RN.
--- NOTE | 2022-06-22 18:00 | NUR ---
PT TRANSFERED TO ROOM 349 @ THIS TIME
--- NOTE | 2022-06-23 04:50 | NUR ---
SHIFT SUMMARY 81 YR M ADMITTED ON 06/08/22 FOR SEPSIS. DNR. PT IS VERY CONFUSED AND IS ONLY ORIENTED TO SELF. HE IS UNABLE TO ANSWER QUESTIONS OR HAVE A CONVERSATION. HE CONTINUALLY ASKED FOR Amalia WHO IS ASSUMED TO BE HIS . HE IS ONLY ABLE TO FOLLOW THE MOST BASIC OF COMMANDS AND IS UNAWARE OF WHERE HE IS. BP HAS COME DOWN TO 129/92. HE IS PLEASANT FOR THE MOST PART, BUT HE KEEPS ASKING TO GO HOME.
[2022-06-23 05:21] LABS: Magnesium, Blood 1.8 mg/dL (1.6-2.4); Phosphorus, Blood 2.5 mg/dL (2.5-4.9)
[2022-06-23 10:11] LABS: Bun/Creatinine Ratio 24.3 (12.0-20.0); Calcium, Blood 8.5 mg/dL (8.5-10.1); Creatinine, Blood 0.82 mg/dL (0.60-1.20); Potassium, Blood 3.3 mmol/L (3.5-5.5)
--- NOTE | 2022-06-23 16:50 | NUR ---
PATIENT HAS BEEN SLEEPING MOST OF THIS SHIFT. THIS MORNING HE WAS ALERT BEFORE AND DURING BREAKFAST. HE WORKED WITH OT SHORTLY AFTER AND STOOD FOR ONLY A COUPLE SECONDS. FOLLOWING THAT HE NAPPED AND WAS MORE DIFFICULT TO AROUSE. ST AND PT ATTEMPTED TO WORK WITH HIM BUT HE WAS TOO SLEEPY. THE PATIENT'S WAS AT THE BEDSIDE FOR LUNCH. THE PATIENT ATE ABOUT 20% OF BREAKFAST AND LUNCH. DR. MARIN DC'D THE CLINIMAX IN HOPES THAT HIS APPETITE WILL INCREASE. WILL CONTINUE TO MONITOR
--- NOTE | 2022-06-24 03:21 | NUR ---
SHIFT SUMMARY 81 YR M ADMITTED ON 06/08/22 FOR SEPSIS. DNR. PT HAS SLEPT FOR MOST OF THIS SHIFT. HE OPENS HIS EYES AND ACKNOWLEDGES WHEN SOMEONE IS IN THE ROOM, BUT HE SPEAKS VERY LITTLE AND STILL APPEARS TO BE VERY CONFUSED. HIS AFFECT IS VERY FLAT. HE HAS MADE NO ATTEMPTS TO GET OUT OF BED THIS SHIFT. HIS SPEECH IS GARBLED AND VERY DIFFICULT TO UNDERSTAND.
[2022-06-24 05:10] LABS: Hematocrit 32.9 % (37.0-53.0); Hemoglobin 10.6 g/dL (13.5-17.5); Mean Corpuscular HGB 29.8 pg (26.0-34.0); Mean Corpuscular HGB Conc 32.2 g/dL (31.5-36.5); Mean Corpuscular Volume 92 fL (80-100); Mean Platelet Volume 11.5 fL (9.1-12.4); Platelet Count 195 K/mm3 (150-400); RDW Coefficient Variation 15.6 % (11.7-14.2); RDW Standard Deviation 51.8 fL (35.1-46.3); Red Blood Cell Count 3.56 M/mm3 (4.30-5.90)
[2022-06-24 06:06] LABS: Albumin, Blood 2.9 g/dL (3.4-5.0); Anion Gap 5 mmol/L (6-16); Blood Urea Nitrogen 15 mg/dL (8-24); Bun/Creatinine Ratio 19.7 (12.0-20.0); CO2, Blood 25 mmol/L (21-32); Chloride, Blood 113 mmol/L (98-108); Creatinine, Blood 0.76 mg/dL (0.60-1.20); Glomerular Filtration Rate 91 (60-); Glucose, Blood 102 mg/dL (70-99); Phosphorus, Blood 1.9 mg/dL (2.5-4.9); Potassium, Blood 3.1 mmol/L (3.5-5.5); Sodium, Blood 143 mmol/L (136-145)
[2022-06-24 16:53] LABS: SARS-Cov-2 (COVID-19) PCR, MMC NEGATIVE (NEGATIVE)
--- NOTE | 2022-06-24 18:43 | NUR ---
LATE ENTRY/DC TO [facility] 1814: PT TO [facility] VIA W/C TRANSPORT. LIFT USED TO PLACE PT IN W/C. HARD SCRIPT FOR PAIN MEDICINE IN DC PKT. PIV IN L FA DC'D WITH CATH TIP INTACT, NO REDNESS OR SWELLING NOTED. F/C REMAINS IN PLACE FOR TRANSFER. ALL PERSONAL BELONGINGS SENT WITH PT. ATTEMPTS TO CALL REPORT TO RECEIVING RN AT [facility] HAVE NOT BEEN SUCCESSFUL, NO ONE IS ANSWERING THE PHONE. NUMBER CALLED IS [phone]. WILL TRY UNTIL THIS RN's SHIFT IS OVER.
== END 2022-06-24 18:20 | DRG 871 ==
LOC: ER 16:14 → ICUE 21:39 → MEDS 21:39 → PCU 21:39 → MEDS 22:22 → ICUE 22:29 → PCU 06-10 17:11 → MEDS 06-21 11:35
PROVIDERS: Family Medicine; Internal Medicine; Student in an Organized Health Care Education/Training Program; ADMIT Internal Medicine
PROC: 009U3ZX Drainage of Spinal Canal, Percutaneous Approach, Diagnostic (ICD-10-PCS; 2022-06-12)
PROC: 02HV33Z Insertion of Infusion Device into Superior Vena Cava, Percutaneous Approach (ICD-10-PCS; principal; 2022-06-19)
PROC: 3E03329 Introduction of Other Anti-infective into Peripheral Vein, Percutaneous Approach (ICD-10-PCS; 2022-06-19)
DX: A41.89 Other specified sepsis (principal); G92.8 Other toxic encephalopathy; J69.0 Pneumonitis due to inhalation of food and vomit; B02.0 Zoster encephalitis; N39.0 Urinary tract infection, site not specified; N17.9 Acute kidney failure, unspecified; E87.1 Hypo-osmolality and hyponatremia; B02.8 Zoster with other complications; Z20.822 Contact with and (suspected) exposure to COVID-19; B00.7 Disseminated herpesviral disease; B02.9 Zoster without complications; I10 Essential (primary) hypertension; K21.9 Gastro-esophageal reflux disease without esophagitis; F03.90 Unspecified dementia, unspecified severity, without behavioral disturbance, psychotic disturbance, mood disturbance, and anxiety; N40.0 Benign prostatic hyperplasia without lower urinary tract symptoms; E87.6 Hypokalemia; E83.42 Hypomagnesemia; E83.39 Other disorders of phosphorus metabolism; I48.91 Unspecified atrial fibrillation; Z96.653 Presence of artificial knee joint, bilateral; Z98.890 Other specified postprocedural states; Z95.0 Presence of cardiac pacemaker; Z79.899 Other long term (current) drug therapy; R56.9 Unspecified convulsions
CPT/HCPCS: 0241U; 36415; 36569; 51701; 51702; 62270; 70450; 71045; 71046; 73090; 76770; 80048; 80053; 80069; 81001; 82803; 82945; 83605; 83735; 83880; 84100; 84145; 84157; 84165; 84443; 84478; 84484; 85025; 85027; 85651; 85730; 86140; 87040; 87070; 87086; 87205; 87483; 89051; 92526; 92610; 93005; 93010; 94760; 94762; 95819; 96365; 96366; 96375; 97110; 97162; 97166; 97530; 97535; 99285-25; A9270; C1751; C9113; J0133; J0295; J0360; J0456; J0696; J1644; J1650; J1953; J2060; J3010; J3411; J3475; J3480; J7030; J7040; J7042; J7050; J7060; J7070; J7120; J7512; U0004

== ENCOUNTER → 2022-08-04 | Outpatient (CLI) | payer OTHER ==
[~2022-08-04] MED LIST changes: +DONEPEZIL HCL5 M2 PO; +LEFLUNOMIDE20 M2 PO
[2022-08-04 17:52] LABS: Appearance, Urine Cloudy (Clear); Bilirubin, Urine Neg (Neg); Blood, Urine 5+ (Neg); Color, Urine Brown (P-Yellow); Glucose Qualitative, Urine Neg (Neg); Ketones, Urine 1+ (Neg); Leukocyte Esterase, Urine 3+ (Neg); Nitrite, Urine Pos (Neg); Protein, Urine 4+ (Neg); Urobilinogen, Urine 1+ (Normal); pH, Urine 6.5 (5.0-8.0)
[2022-08-04 18:07] LABS: Bacteria Many /hpf; Red Blood Cells, Urine TNTC /hpf (0-2); Squamous Epithelial Cells Not Seen /hpf (Few); Transitional Epithelial Cells Rare /hpf (0-Rare); White Blood Cells, Urine TNTC /hpf (0-5)
== END ==
LOC: LAB SHORT 15:00
DX: N39.0 Urinary tract infection, site not specified (principal)
CPT/HCPCS: 81001

== ENCOUNTER 2022-09-03 11:03 | Inpatient (IN) | payer OTHER ==
[~2022-09-03] VITALS: Ht 185.4 cm; Wt 99.2 kg
[2022-09-03 11:23] LABS: Source, Urine Clean Catch
[2022-09-03 11:28] LABS: Appearance, Urine Turbid (Clear); Blood, Urine 4+ (Neg); Color, Urine Yellow (P-Yellow); Glucose Qualitative, Urine Neg (Neg); Ketones, Urine Neg (Neg); Leukocyte Esterase, Urine 3+ (Neg); Nitrite, Urine Pos (Neg); Protein, Urine 3+ (Neg); Specific Gravity, Urine 1.015 (1.003-1.022); Urobilinogen, Urine 2+ (Normal)
[2022-09-03 11:48] LABS: Bilirubin, Urine 2+ (Neg)
[2022-09-03 11:52] LABS: Bacteria Many /hpf; Squamous Epithelial Cells Rare /hpf (Few); White Blood Cells, Urine TNTC /hpf (0-5)
[2022-09-03 13:01] LABS: Hematocrit 38.9 % (37.0-53.0); Hemoglobin 12.7 g/dL (13.5-17.5); Mean Corpuscular HGB 31.3 pg (26.0-34.0); Mean Corpuscular HGB Conc 32.6 g/dL (31.5-36.5); Mean Corpuscular Volume 96 fL (80-100); Mean Platelet Volume 12.1 fL (9.1-12.4); Platelet Count 209 K/mm3 (150-400); RDW Coefficient Variation 15.9 % (11.7-14.2); RDW Standard Deviation 56.7 fL (35.1-46.3); Red Blood Cell Count 4.06 M/mm3 (4.30-5.90)
[2022-09-03 13:23] LABS: Albumin/Globulin Ratio 0.8 (0.8-1.8); Bilirubin, Total 1.1 mg/dL (0.1-1.0); Bun/Creatinine Ratio 23.7 (12.0-20.0); Calcium, Blood 10.1 mg/dL (8.5-10.1); Creatinine, Blood 1.18 mg/dL (0.60-1.20); Globulin, Blood 4.9 g/dL (2.2-4.0); Potassium, Blood 3.9 mmol/L (3.5-5.5); Total Protein, Blood 8.9 g/dL (6.4-8.2)
[2022-09-03 13:34] LABS: BASOPHILS PERCENT MAN 0 % (0-2); EOSINOPHILS PERCENT MAN 0 % (0-6); LYMPHOCYTES ABSOLUTE MAN 1.98 K/mm3 (0.84-5.20); LYMPHOCYTES PERCENT MAN 11 % (21-46); MONOCYTES ABSOLUTE MAN 5.22 K/mm3 (0.16-1.47); MONOCYTES PERCENT MAN 29 % (4-13); SEG NEUTROPHILS PERCENT MAN 60 % (41-73); TOTAL CELLS COUNTED 100
[2022-09-03] MEDS ORDERED: PHENA200 PO (16:28)
[2022-09-03] MEDS ORDERED: LOSA25 PO (16:29)
[2022-09-03] MEDS ORDERED: KEPPRA1000 M1 PO (16:29)
[2022-09-03] MEDS ORDERED: K-Phos Origina500 MG PO (16:31)
[2022-09-03] MEDS ORDERED: LIDO700A20 TOP (16:35)
[2022-09-03] MEDS ORDERED: CYCL10 PO (16:35)
[2022-09-03] MEDS ORDERED: HYDR1TAB94 PO (16:36)
[2022-09-03] MEDS ORDERED: ELIQUIS5 M2 PO (16:37)
[2022-09-03] MEDS ORDERED: SERT50 PO (16:37)
[2022-09-03] MEDS ORDERED: DONE5 PO (16:37)
[2022-09-03] MEDS ORDERED: Pepcid20 MG PO (16:38)
[2022-09-03] MEDS ORDERED: FOLI1 PO (16:38)
--- NOTE | 2022-09-03 19:38 | NUR ---
ADMIT NOTE 81 YR OLD MALE ADMITTED TO FLOOR FROM THE ED WITH DX UTI. PT CONFUSED. UNABLE TO OBTAIN INFO RE MEDICATIONS. VERBAL RANDOM STATEMENTS. DENIES LOSS OF FEELING. NO NOTED S/S ACUTE DISTRESS. CALL LIGHT IN REACH. RAILS UP X 3. BED ALARM ON
--- NOTE | 2022-09-04 04:00 | NUR ---
PERL SOFTWARE ENGINEER SUMMARY WAS ADMITTED AT SHIFT COMMENCE WITH DX OF UTI. SOME CONFUSION, INABILITY TO ANSWER QUESTIONS RE MEDS, ETC. CHARGE NURSE NOTIFIED. WAS INITIALLY PLACED ON ISOLATION PRECAUTIONS, BUT NO NOTED SHINGLES ON BODY WITH (2) RN ASSESSMENTS AND WAS TAKEN OFF SAID PRECAUTIONS. ESTEVEZ DRAINING DARK YODIT. URINARY ANTISEPTIC ADMINISTERED. HAS BEEN RESTING QUIETLY WITH FEW INTERRUPTIONS SINCE. CALL LIGHT IN REACH. RAILS UP X 3. WILL CONTINUE TO MONITOR
[2022-09-04 05:07] LABS: Hematocrit 34.6 % (37.0-53.0); Hemoglobin 11.2 g/dL (13.5-17.5); Mean Corpuscular HGB 30.8 pg (26.0-34.0); Mean Corpuscular HGB Conc 32.4 g/dL (31.5-36.5); Mean Corpuscular Volume 95 fL (80-100); Mean Platelet Volume 12.6 fL (9.1-12.4); Platelet Count 203 K/mm3 (150-400); RDW Coefficient Variation 15.9 % (11.7-14.2); RDW Standard Deviation 55.8 fL (35.1-46.3); Red Blood Cell Count 3.64 M/mm3 (4.30-5.90); White Blood Cell Count 34.66 K/mm3 (4.00-11.30)
[2022-09-04 05:28] LABS: Bun/Creatinine Ratio 23.7 (12.0-20.0); Calcium, Blood 9.6 mg/dL (8.5-10.1); Creatinine, Blood 1.18 mg/dL (0.60-1.20)
--- NOTE | 2022-09-04 06:17 | NUR ---
TEMP 100.1 TEMPORAL. COOL, WET CLOTH TO FOREHEAD. FLUIDS ENCOURAGED. WILL RE CHECK TEMP SOON.
--- NOTE | 2022-09-04 08:00 | NUR ---
pt confused, awake, not redirectable, he will put his leg back in bed when asked to but he is not following commands, lungs are cleaer dim in bases, on r/a, no cough noted, on r/a, hrr, no edema noted, ppp faint, cap refill <3sec, vs stable, afebrile, iv site to lac is clear and patent, btx4, abd flat soft nontender, voids via henderson cath at this time, urine is orange and cloudy, skin pale, but c/d/i, maew, michelle, call light in reach.
--- NOTE | 2022-09-04 09:00 | NUR ---
pt chewed po meds when given with water or food, will crush them. call light in reach.
--- NOTE | 2022-09-04 19:08 | NUR ---
new iv placed to rfa, x1 attempt, good blood return, pt needs assistance eating, sleeping most of the day, still very confused, call light in reach.
--- NOTE | 2022-09-04 19:54 | NUR ---
PULLING AT ESTEVEZ AND LINES. REFUSED TO REDIRECT. MD NOTIFIED AND PLACED IN BILAT WRIST RESTRAINTS
--- NOTE | 2022-09-05 03:58 | NUR ---
HIGH SCHOOL SOCIAL SCIENCE TEACHER SUMMARY REMAINS CONFUSED. MULTIPLE ATTEMPTS TO PULL AT ESTEVEZ. NOT REDIRECTABLE. PLACED IN BILAT WRIST RESTRAINTS PER MD ORDERS FOR SAFETY ISSUES. IVF INFUSING. REPOSITIONED AND RESTRAINTS CHECKED. VSS. CALL LIGHT IN REACH. RESTING QUIETLY AT INTERVALS.
[2022-09-05 09:16] LABS: Hematocrit 35.9 % (37.0-53.0); Hemoglobin 11.5 g/dL (13.5-17.5); Mean Corpuscular HGB 30.6 pg (26.0-34.0); Mean Corpuscular Volume 96 fL (80-100); Mean Platelet Volume 12.2 fL (9.1-12.4); Platelet Count 180 K/mm3 (150-400); RDW Coefficient Variation 15.9 % (11.7-14.2); RDW Standard Deviation 56.5 fL (35.1-46.3); Red Blood Cell Count 3.76 M/mm3 (4.30-5.90); White Blood Cell Count 23.43 K/mm3 (4.00-11.30)
[2022-09-05 09:36] LABS: Anion Gap 9 mmol/L (6-16); Blood Urea Nitrogen 27 mg/dL (8-24); Bun/Creatinine Ratio 27.2 (12.0-20.0); CO2, Blood 22 mmol/L (21-32); Calcium, Blood 8.9 mg/dL (8.5-10.1); Chloride, Blood 107 mmol/L (98-108); Creatinine, Blood 0.99 mg/dL (0.60-1.20); Glomerular Filtration Rate 77 (60-); Glucose, Blood 119 mg/dL (70-99); Phosphorus, Blood 2.5 mg/dL (2.5-4.9); Potassium, Blood 3.8 mmol/L (3.5-5.5); Sodium, Blood 138 mmol/L (136-145)
--- NOTE | 2022-09-05 18:52 | NUR ---
SHIFT SUMMARY: RESTRAINTS D/C'D AT 1025 THIS MORNING. NO RESTRAINTS NEEDED THE REST OF THIS SHIFT. URINE CULTURE GROWING VRE, DR. PALMER NOTIFIED AND ABX CHANGED TO AMPICILLIN/SULBACTAM. ALERT TO SELF ONLY, CAN FOLLOW SOME DIRECTIONS. ESTEVEZ DRAINING DARK YELLOW/YODIT URINE. WEARING O2 @ 2 L/MIN NC. C/O 8/10 BACK PAIN, WITH NO RELIEF FROM TYLENOL; PROVIDER RE-ORDERED NORCO, BUT PT SLEEPING THIS AFTERNOON SO NO DOSE GIVEN. WORKED WITH PT/OT, EXTREMELY WEAK BLE. GAVE TELEPHONE UPDATE THIS AFTERNOON.
[2022-09-05] MEDS ORDERED: LEFLUNOMIDE20 M2 PO (20:29)
[2022-09-05] MEDS ORDERED: TAMSULOSIN HCL0.4 M1 PO (20:30)
[2022-09-05] MEDS ORDERED: Ondansetron Odt8 MG PO (20:33)
--- NOTE | 2022-09-06 04:07 | NUR ---
TORCH SOLDERER SUMMARY ATTEMPTS TO GET OUT OF BED AND PULL OUT LINES AND ESTEVEZ. NOT REDIRECTABLE. PLACED IN BILAT WRIST RESTRAINTS AND 4 RAILS UP PER MD ORDER FOR SAFETY. INTERMITTENT SLEEPING, AND THEN YELLING OUT, CONFUSED STATEMENTS. IV ANTIBIOTICS INFUSING PER MD ORDERS - SEE MAR FOR DETAILS. ISOLATION PRECAUTIONS CONTINUE. VSS. WILL CONTINUE TO MONITOR
[2022-09-06 05:25] LABS: Hematocrit 34.6 % (37.0-53.0); Hemoglobin 11.1 g/dL (13.5-17.5); Mean Corpuscular HGB 30.6 pg (26.0-34.0); Mean Corpuscular HGB Conc 32.1 g/dL (31.5-36.5); Mean Corpuscular Volume 95 fL (80-100); Mean Platelet Volume 12.7 fL (9.1-12.4); Platelet Count 182 K/mm3 (150-400); RDW Coefficient Variation 15.5 % (11.7-14.2); RDW Standard Deviation 54.7 fL (35.1-46.3); Red Blood Cell Count 3.63 M/mm3 (4.30-5.90); White Blood Cell Count 15.53 K/mm3 (4.00-11.30)
[2022-09-06] MEDS ORDERED: VISBIOME 112.51 EACH PO (12:29)
[2022-09-06] MEDS ORDERED: LINE600 PO (12:30)
--- NOTE | 2022-09-06 14:05 | NUR ---
PATIENT DISCHARGED TO HOME ACCOMPANIED BY HIS AND A FRIEND. PAULINE VERBALIZED UNDERSTANDING OF INSTRUCTIONS. GAVE ADDITIONAL INFORMATION ON INDWELLING CATHETER CARE AND URINARY RETENTION, AND RECOMMENDED THAT THEY ASK PCP FOR UROLOGY CONSULT. IV SALINE LOCK REMOVED WITHOUT INCIDENT. PT DRESSED IN HIS OWN CLOTHING. OFF UNIT VIA W/C AT 1400. NO PERSONAL BELONGINGS LEFT BEHIND IN ROOM.
== END 2022-09-06 14:01 | disposition home health service (06) | DRG 871 ==
LOC: ER 11:03 → MEDS 11:04
PROVIDERS: Emergency Medicine; Internal Medicine; Student in an Organized Health Care Education/Training Program; ADMIT Internal Medicine
DX: A41.9 Sepsis, unspecified organism (principal); G92.8 Other toxic encephalopathy; I48.20 Chronic atrial fibrillation, unspecified; M48.56XA Collapsed vertebra, not elsewhere classified, lumbar region, initial encounter for fracture; N13.8 Other obstructive and reflux uropathy; N39.0 Urinary tract infection, site not specified; M19.90 Unspecified osteoarthritis, unspecified site; I49.5 Sick sinus syndrome; F32.A Depression, unspecified; R56.9 Unspecified convulsions; F03.90 Unspecified dementia, unspecified severity, without behavioral disturbance, psychotic disturbance, mood disturbance, and anxiety; Z96.653 Presence of artificial knee joint, bilateral; N40.1 Benign prostatic hyperplasia with lower urinary tract symptoms; R33.8 Other retention of urine; I10 Essential (primary) hypertension; K21.9 Gastro-esophageal reflux disease without esophagitis; Z79.899 Other long term (current) drug therapy; Z90.49 Acquired absence of other specified parts of digestive tract; Z95.0 Presence of cardiac pacemaker; Z98.890 Other specified postprocedural states; Z79.01 Long term (current) use of anticoagulants
CPT/HCPCS: 36415; 51702; 72100; 74177; 80048; 80053; 80069; 81001; 83605; 85025; 85027; 87077; 87086; 87186; 96365-59; 96375-59; 97110; 97116; 97162; 97165; 97535; 99285-25; A9270; G0378; J0295; J0696; J1885; J1956; J7030; J7050; Q9967

== ENCOUNTER 2022-11-02 09:32 | Emergency (ER) | payer OTHER ==
[~2022-11-02] VITALS: Ht 185.4 cm; Wt 98.4 kg
[~2022-11-02 09:32] MED LIST changes: +CYCL10 PO; +DONE5 PO; +FOLI1 PO; +HYDR1TAB94 PO; +K-Phos Origina500 MG PO; +KEPPRA1000 M1 PO; +LIDO700A20 TOP; +LINE600 PO; +LOSA25 PO; +Ondansetron Odt8 MG PO; +PHENA200 PO; +Pepcid20 MG PO; +SERT50 PO; +VISBIOME 112.51 EACH PO
[2022-11-02 10:22] LABS: Source, Urine Foley catheter
[2022-11-02 10:29] LABS: Appearance, Urine Cloudy (Clear); Bilirubin, Urine Neg (Neg); Blood, Urine 5+ (Neg); Color, Urine Yellow (P-Yellow); Glucose Qualitative, Urine Neg (Neg); Ketones, Urine Neg (Neg); Leukocyte Esterase, Urine 3+ (Neg); Nitrite, Urine Neg (Neg); Protein, Urine 3+ (Neg); Specific Gravity, Urine 1.015 (1.003-1.022); Urobilinogen, Urine NORM (Normal)
[2022-11-02 10:39] LABS: Bacteria Mod /hpf; Red Blood Cells, Urine TNTC /hpf (0-2); Squamous Epithelial Cells Not Seen /hpf (Few); White Blood Cells, Urine TNTC /hpf (0-5)
[2022-11-02 10:40] LABS: Amorphous Mod (0-Heavy); Mucus Light (0-Heavy)
[2022-11-02] MEDS ORDERED: CEFD300 PO (10:51)
== END 2022-11-02 11:24 | disposition home or self-care (01) ==
LOC: ER 09:32
PROVIDERS: Emergency Medicine
DX: N39.0 Urinary tract infection, site not specified (principal); R33.8 Other retention of urine; I10 Essential (primary) hypertension; F03.90 Unspecified dementia, unspecified severity, without behavioral disturbance, psychotic disturbance, mood disturbance, and anxiety; N40.1 Benign prostatic hyperplasia with lower urinary tract symptoms; Z79.899 Other long term (current) drug therapy; Z79.01 Long term (current) use of anticoagulants
CPT/HCPCS: 51702; 81001; 87086; 99283-25

== ENCOUNTER 2022-11-23 14:37 | Emergency (ER) | payer OTHER ==
[~2022-11-23] VITALS: Ht 182.9 cm; Wt 104.3 kg
[~2022-11-23 14:37] MED LIST changes: +CEFD300 PO
[2022-11-24] MEDS ORDERED: K-Phos Origina500 MG PO (11:44)
[2022-11-24] MEDS ORDERED: LOSA25 PO (17:02)
== END 2022-11-23 18:29 | disposition left against medical advice (07) ==
LOC: ER 14:37
DX: N39.0 Urinary tract infection, site not specified (principal); Z53.21 Procedure and treatment not carried out due to patient leaving prior to being seen by health care provider
CPT/HCPCS: 99281

== ENCOUNTER 2022-11-24 08:34 | Inpatient (IN) | payer OTHER ==
[~2022-11-24] VITALS: Ht 185.4 cm; Wt 100.7 kg
[2022-11-24 09:28] LABS: BASOPHILS ABSOLUTE AUTO 0.02 K/mm3 (0.00-0.23); BASOPHILS PERCENT AUTO 0 % (0-2); EOSINOPHILS ABSOLUTE AUTO 0.01 K/mm3 (0.00-0.68); EOSINOPHILS PERCENT AUTO 0 % (0-6); Hematocrit 41.5 % (37.0-53.0); Hemoglobin 13.4 g/dL (13.5-17.5); IMMATURE GRAN ABSOLUTE AUTO 0.09 K/mm3 (0.00-0.10); IMMATURE GRAN PERCENT AUTO 1 % (0-1); LYMPHOCYTES ABSOLUTE AUTO 0.92 K/mm3 (0.84-5.20); LYMPHOCYTES PERCENT AUTO 6 % (21-46); MONOCYTES ABSOLUTE AUTO 4.75 K/mm3 (0.16-1.47); MONOCYTES PERCENT AUTO 28 % (4-13); Mean Corpuscular HGB 30.4 pg (26.0-34.0); Mean Corpuscular HGB Conc 32.3 g/dL (31.5-36.5); Mean Corpuscular Volume 94 fL (80-100); Mean Platelet Volume 12.2 fL (9.1-12.4); NEUTROPHILS ABSOLUTE AUTO 10.94 K/mm3 (1.96-9.15); NEUTROPHILS PERCENT AUTO 65 % (41-73); Platelet Count 154 K/mm3 (150-400); RDW Coefficient Variation 14.9 % (11.7-14.2); Red Blood Cell Count 4.41 M/mm3 (4.30-5.90); White Blood Cell Count 16.73 K/mm3 (4.00-11.30)
[2022-11-24 09:39] LABS: Albumin/Globulin Ratio 0.8 (0.8-1.8); Bilirubin, Total 0.7 mg/dL (0.1-1.0); Bun/Creatinine Ratio 21.6 (12.0-20.0); Calcium, Blood 8.9 mg/dL (8.5-10.1); Creatinine, Blood 1.34 mg/dL (0.60-1.20); Globulin, Blood 4.8 g/dL (2.2-4.0); Potassium, Blood 4.1 mmol/L (3.5-5.5); Total Protein, Blood 8.8 g/dL (6.4-8.2)
[2022-11-24 10:25] LABS: Source, Urine Foley catheter
[2022-11-24 10:38] LABS: Appearance, Urine Bloody (Clear); Bilirubin, Urine Neg (Neg); Blood, Urine 5+ (Neg); Color, Urine Red (P-Yellow); Glucose Qualitative, Urine Neg (Neg); Ketones, Urine Neg (Neg); Leukocyte Esterase, Urine 3+ (Neg); Nitrite, Urine Neg (Neg); Protein, Urine 3+ (Neg); Specific Gravity, Urine 1.015 (1.003-1.022); Urobilinogen, Urine NORM (Normal)
[2022-11-24 10:54] LABS: Red Blood Cells, Urine TNTC /hpf (0-2)
[2022-11-24 10:56] LABS: Bacteria Many /hpf
[2022-11-24 10:57] LABS: Squamous Epithelial Cells Not Seen /hpf (Few)
[2022-11-24] MEDS ORDERED: K-Phos Origina500 MG PO (11:44)
[2022-11-24] MEDS ORDERED: LOSA25 PO (17:02)
--- NOTE | 2022-11-24 18:03 | NUR ---
Review of pt with nursing family wants full code at this time will review prognosis. Nithya varghese pt back in hospital.
--- NOTE | 2022-11-24 19:31 | NUR ---
PATIENT IS CONFUSED. DOES FOLLOW SOME DIRECTION. WAS NOT ABLE TO ASSIST WITH HX. PATIENT C/O HEADACHE AND NECK PAIN, DR. AARON ORDERED HEAD CT. ESTEVEZ IN PLACE. CAP REFILL IN FINGERS AND TOES IS MORE THAN 3 SECONDS, DR. AARON NOTIFIED BY PHONE. PATIENT TOLERATED HIS DINNER WELL. REPORT GIVEN TO ONCOMING TAISHA
--- NOTE | 2022-11-25 02:11 | NUR ---
CALL FROM ORQUIDEA IN HEMATOLOGY: PT BLOOD CULTURES POSITIVE FOR GRAM VARIABLE BACILLI.
[2022-11-25 04:50] LABS: Hemoglobin 11.6 g/dL (13.5-17.5); Mean Corpuscular HGB 30.2 pg (26.0-34.0); Mean Corpuscular HGB Conc 32.2 g/dL (31.5-36.5); Mean Corpuscular Volume 94 fL (80-100); Mean Platelet Volume 12.9 fL (9.1-12.4); Platelet Count 109 K/mm3 (150-400); RDW Coefficient Variation 15.9 % (11.7-14.2); RDW Standard Deviation 54.1 fL (35.1-46.3); Red Blood Cell Count 3.84 M/mm3 (4.30-5.90); White Blood Cell Count 29.25 K/mm3 (4.00-11.30)
[2022-11-25 04:54] LABS: Bun/Creatinine Ratio 18.3 (12.0-20.0); Calcium, Blood 8.6 mg/dL (8.5-10.1); Creatinine, Blood 1.53 mg/dL (0.60-1.20); Magnesium, Blood 1.9 mg/dL (1.6-2.4); Potassium, Blood 4.2 mmol/L (3.5-5.5)
--- NOTE | 2022-11-25 05:50 | NUR ---
TECHNOLOGY RECRUITER SUMMARY: A&O TO SELF. DOES NOT USE CALL LIGHT AND DOES NOT COMMUNICATE NEEDS EFFECTIVELY. ASSOCIATIVE WORDS WITH SOME CONFUSION. SOME CONFUSIONG T/O THE NIGHT IN WHICH HE TRIED TO GET OUT OF BED TO "FIX HIS REMOTE". BED ALARM IS ACTIVATED. ESTEVEZ PATENT AND DRAINING YODIT-COLORED URINE. NO C/O PAIN T/O THE NIGHT. 1L LR ADMINISTERED. BLOOD CULTURES RETURNED POSITIVE FOR GRAM-NEGATIVE BACILLI. LABS DRAWNT HIS AM; NO OTHER CRITICAL VALUES RECEIVED. WILL REPORT TO ONCOMING RN.
--- NOTE | 2022-11-25 16:56 | NUR ---
EVENINGNOTE fAMILY HERE AT BEDSIDE. IS PROFOUNDLY [place] WITH VERY POOR MOBILITY. DAUGHTER BROUGHT HER. PT VSS. HE IS C/O OF HEADACHE. HE DOES HOLD AND PULL ON HIS CATHETER. DECENT URINE OUTPT. URINE COLOR DARK, NO CLOTS NOTED. LEFT AC IV REMOVED D/T LEAKING. RIGHT AC IV POSITIONAL. CONTINUE POC.
[2022-11-26 03:16] LABS: PCO2 Arterial 28.9 mmHg (35-45); PO2 Arterial 153 mmHg (80-100); pH Blood Arterial 7.44 (7.35-7.45)
[2022-11-26 06:25] LABS: Hematocrit 34.3 % (37.0-53.0); Hemoglobin 11.3 g/dL (13.5-17.5); Mean Corpuscular HGB 31.2 pg (26.0-34.0); Mean Corpuscular HGB Conc 32.9 g/dL (31.5-36.5); Mean Corpuscular Volume 95 fL (80-100); Platelet Count 98 K/mm3 (150-400); RDW Coefficient Variation 16.1 % (11.7-14.2); RDW Standard Deviation 55.9 fL (35.1-46.3); Red Blood Cell Count 3.62 M/mm3 (4.30-5.90); White Blood Cell Count 22.41 K/mm3 (4.00-11.30)
[2022-11-26 06:28] LABS: Mean Platelet Volume 13.4 fL (9.1-12.4)
--- NOTE | 2022-11-26 06:45 | NUR ---
STORE MANAGER SUMMARY A&O TO SELF, ONLY. HAS HAD QUITE A SIGNIFICANT CHANGE IN CONDITION SINCE YESTERDAY. LESS ALERT. ANSWERS QUESTIONS BUT NOT ALWAYS CORRECTLY. WHEN ASKED THE YEAR, ANSWERED 1943. WHEN ASKED WHAT [place] IS IN, [place], AND THEN [place]. DAY SHIFT RN CLARIFIED WITH PROVIDER TO CONTINUE WITH LR, BUT IV INFILTRATED IN SAHARA LAST NIGHT AND IV WAS REMOVED. IV IN RAC PULLED OUT AND WAS REMOVED, WELL. REPLACED IN RIGHT HAND. PT NOTED TO BE VERY TACHYPNIC AND USING ACCESSORY MUSCLES TO BREATHE. SPO2 74%. PLACED ON 2L/min O2 AND CALLED RT WHO INCREASED O2 TO 6L/min VIA NC; SPO2 INCREASED TO 94%. HOSPITALIST NOTIFIED. RT COLLECTED ABGs AND RECOMMENDED O2 BE TURNED BACK DOWN TO 2L/min. HELPED INCREASED ORIENTATION BY SOME. CONTINUES TO PULL AT ESTEVEZ TUBING AND IS DIFFICULT TO REDIRECT. REFUSED SECOND SET OF BLOOD CULTURES THIS MORNING; LAB WILL TRY AGAIN AFTER BREAKFAST. LABS DRAWN THIS AM; NO CRITICAL VALUES RECEIVED AT THIS TIME. WILL REPORT TO ONCOMING RN.
[2022-11-26 07:01] LABS: Anion Gap 9 mmol/L (6-16); Blood Urea Nitrogen 26 mg/dL (8-24); Bun/Creatinine Ratio 18.6 (12.0-20.0); CO2, Blood 21 mmol/L (21-32); Calcium, Blood 8.6 mg/dL (8.5-10.1); Chloride, Blood 108 mmol/L (98-108); Glomerular Filtration Rate 51 (60-); Glucose, Blood 89 mg/dL (70-99); Phosphorus, Blood 2.6 mg/dL (2.5-4.9); Potassium, Blood 3.9 mmol/L (3.5-5.5); Sodium, Blood 138 mmol/L (136-145)
--- NOTE | 2022-11-26 08:41 | NUR ---
BREAKFAST PT AWAKE, ALERT, CONFUSED. PT NEEDING CUEING AND FEEDING ASSIST THIS MORNING. CONSTANTLY TRYING TO WIGGLE AND GRAB HIS ESTEVEZ. REDIRECTA FOR SHORT PERODS OF TIME. GAVE HIM HIS PILLS WHOLE IN APPLESAUCE. HE DID BETTER WITH THAT THEN DRY WITH WATER. HE TRIED TO GRAB THIS NURSES SHAAN AREA UPON ENTERINGHTE ROOM ANF APPROACHING THE BED. WHEN REDIRECTED AND TOLD NO, HE GIGGLE, SHRUGGED AND SAID, "JUST TRYING." CONTINUE POC.
--- NOTE | 2022-11-26 17:41 | NUR ---
EVENING NOTE PT HAS HAD A STABLE DAY. LUNGS CTA. PCXR DONE PER ORDER. LASIX GIVEN FOR PRESUMPTIVE OVERLOAD. EXCELLENT OUTPT. ESTEVEZ PATENT. RESP. EVEN AND UNLABORED. NO COUGH. PT ABLE TO ZHANNA AND YELL JUST FINE WITH NO LOSS OF VOICE QUALITY. BP STABLE. MULTIPLE ATTEMPTS TO PULL THE IV OUT OF HTE BACK OF HIS HAND. MULTIPLE ATTEMPTS TO PULL ESTEVEZ. HE DOES REDIRECT. HAS CALLED 3 TIMES TO CHECK ON HIM. HE TALKED TO HER ON THE PHONE THIS MORNING. PT NEEDING HELP WITH MEALS. SWALLOW WELL WITH NO COUGH OR SIGNS OF ASPIRATION. SKIN PALE, WARM AND DRY. HE PREFERRS TO BE UNCOVERED. HE KICKS OFF THE SHEET/BLANKET. HE WILL LEAVE THE BLANKET FOLDED OVER HIS LAP. NO SIGNS OF PAIN OR DISCOMFORT. HE FOLLWS SOME SIMPLE DIRECTIONS. CONTINUE POC.
[2022-11-27 04:54] LABS: Hematocrit 33.5 % (37.0-53.0); Hemoglobin 11.2 g/dL (13.5-17.5); Mean Corpuscular HGB 30.8 pg (26.0-34.0); Mean Corpuscular HGB Conc 33.4 g/dL (31.5-36.5); Mean Corpuscular Volume 92 fL (80-100); Platelet Count 94 K/mm3 (150-400); RDW Standard Deviation 54.3 fL (35.1-46.3); Red Blood Cell Count 3.64 M/mm3 (4.30-5.90); White Blood Cell Count 11.67 K/mm3 (4.00-11.30)
[2022-11-27 04:56] LABS: Mean Platelet Volume 13.8 fL (9.1-12.4)
[2022-11-27 05:14] LABS: Albumin, Blood 3.1 g/dL (3.4-5.0); Anion Gap 6 mmol/L (6-16); Blood Urea Nitrogen 27 mg/dL (8-24); Bun/Creatinine Ratio 19.9 (12.0-20.0); CO2, Blood 24 mmol/L (21-32); Chloride, Blood 110 mmol/L (98-108); Creatinine, Blood 1.36 mg/dL (0.60-1.20); Glomerular Filtration Rate 53 (60-); Glucose, Blood 114 mg/dL (70-99); Phosphorus, Blood 2.8 mg/dL (2.5-4.9); Potassium, Blood 3.4 mmol/L (3.5-5.5); Sodium, Blood 140 mmol/L (136-145)
--- NOTE | 2022-11-27 05:57 | NUR ---
STUFFED CASING TIER SUMMARY: A&Ox1-2; SELF AND PLACE, ONLY. DOES NOT USE CALL LIGHT AND IS UNABLE TO EFFECTIVELY COMMUNICATE NEEDS. PULLED RIGHT HAND IV OUT DURING ABx ADMINISTRATION LAST NIGHT. DISCUSSED WITH CHARGE WHO WILL REACH OUT TO HAVE POWERGLIDE PLACED TODAY DUE TO PT HAVING GONE THROUGH FIVE IVs SINCE SUNDAY; THREE HAVE GONE BAD AND TWO PULLED OUT. CONSEQUENTLY, HE MISSED HIS 0600 DOSE OF ABx. LABS DRAWN THIS AM; NO CRITICAL VALUES REPORTED AT THIS TIME. HIS WBC DECREASED SINCE YESTERDAY WITH CHANGE FROM ZOSYN TO UNACYN. COMPLETE BED CHANGE, BED BATH AND BRIEF CHANGE AFTER PULLING IV D/T TRICKLE OF BLOOD FROM IV SITE. WILL REPORT TO ONCOMING RN.
--- NOTE | 2022-11-27 11:53 | NUR ---
RN NOTE MR MELARA IS ORIENTATED TO HIS OWN NAME ONLY. ABLE TO FOLLOW SOME SIMPLE INSTRUCTIONS BUT VERY FORGETFUL AND DISORIENTATED. POWERGLIDE PLACED TODAY. O2 2L N/C THAT PT PULLS OFF INTERMITTANTLY. CHRONIC ESTEVEZ IN PLACE WITH YODIT URINE OUTPUT. BED LOW, CALL LIGHT IN REACH, BED ALARM ON.
--- NOTE | 2022-11-27 16:21 | NUR ---
Spiritual care visit conducted. Patient is lying in bed and alert. Patient answers every question I asked but they were not the answers to any of the questions I was asking. Patient is confused but it appears as if he is very convinced that what he is saying is very much in line with the conversation. He did say, "Yes," when I asked if I could pray for him and so I gladly provided prayer. I provided therapeutic listening which seemed meaningful to the patient. I will continue to remain available to patient and family.
--- NOTE | 2022-11-27 16:30 | NUR ---
SHIFT SUMMARY MR MELARA IS VERY CONFUSED AND FORGETFUL, ORIENTATED TO HIS OWN NAME ONLY. ABLE TO FOLLOW SOME SIMPLE INSTRUCTIONS. ON O2 2L NC. CHRONIC ESTEVEZ IN PLACE. HE HAS DENIED ANY PAIN TODAY. POWERGLIDE PLACED THIS AM. BED LOW, BED ALARM ON, CALL LIGHT IN REACH.
--- NOTE | 2022-11-27 18:43 | NUR ---
Attempted to call BERENICE Jolly today to discuss code status. Left a message requesting a return call.
--- NOTE | 2022-11-28 04:54 | NUR ---
PATTERN MECHANIC SUMMARY NO ACUTE EVENTS. PT IS ORIENTED TO SELF. PLEASANT AND COOPERATIVE WITH CARE. PT IS VERY FORGETFUL BUT REDIRECTABLE AND ABLE TO FOLLOW DIRECTIONS. PT ON 2L O2 NC; FREQUENTLY COMING OFF OR BEING TAKEN OFF. PT ABLE TO SWALLOW PILLS WHOLE ONE AT A TIME; NEEDS PROMPTING TO SWALLOW WHOLE AND NOT CHEW. LEFT UPPER ARM POWER GLIDE PATENT/FLUSHABLE BUT POSITIONAL F/INFUSING. VITAL SIGNS REVIEWED/STABLE. FALL RISK; BED/CHAIR ALARMS USED T/O SHIFT. CALL LIGHT IS ACCESSIBLE; PT UNABLE TO CALL APPROPRIATELY. PT HAS NOT BEEN IMPULSIVE T/O THE SHIFT. BED LOCKED/LOW.
[2022-11-28 10:30] LABS: BASOPHILS ABSOLUTE AUTO 0.05 K/mm3 (0.00-0.23); BASOPHILS PERCENT AUTO 1 % (0-2); EOSINOPHILS ABSOLUTE AUTO 0.07 K/mm3 (0.00-0.68); EOSINOPHILS PERCENT AUTO 1 % (0-6); Hematocrit 31.6 % (37.0-53.0); Hemoglobin 10.2 g/dL (13.5-17.5); IMMATURE GRAN ABSOLUTE AUTO 0.14 K/mm3 (0.00-0.10); IMMATURE GRAN PERCENT AUTO 2 % (0-1); LYMPHOCYTES ABSOLUTE AUTO 1.24 K/mm3 (0.84-5.20); LYMPHOCYTES PERCENT AUTO 16 % (21-46); MONOCYTES ABSOLUTE AUTO 1.63 K/mm3 (0.16-1.47); MONOCYTES PERCENT AUTO 21 % (4-13); Mean Corpuscular HGB 30.1 pg (26.0-34.0); Mean Corpuscular HGB Conc 32.3 g/dL (31.5-36.5); Mean Corpuscular Volume 93 fL (80-100); Mean Platelet Volume 12.7 fL (9.1-12.4); NEUTROPHILS ABSOLUTE AUTO 4.65 K/mm3 (1.96-9.15); NEUTROPHILS PERCENT AUTO 60 % (41-73); Platelet Count 135 K/mm3 (150-400); RDW Coefficient Variation 16.2 % (11.7-14.2); Red Blood Cell Count 3.39 M/mm3 (4.30-5.90); White Blood Cell Count 7.78 K/mm3 (4.00-11.30)
[2022-11-28 10:45] LABS: Bun/Creatinine Ratio 20.1 (12.0-20.0); Calcium, Blood 8.5 mg/dL (8.5-10.1); Creatinine, Blood 1.39 mg/dL (0.60-1.20); Potassium, Blood 3.2 mmol/L (3.5-5.5)
[2022-11-28] MEDS ORDERED: Acetaminophen325 M1 PO (11:20)
[2022-11-28] MEDS ORDERED: UNASYN 3 GM VIAL3 G1 IV (11:21)
[2022-11-28 13:13] LABS: SARS-Cov-2 (COVID-19) PCR, MMC NEGATIVE (NEGATIVE)
--- NOTE | 2022-11-28 16:08 | NUR ---
DISCHARGE NOTE: PT DRESSED AND PERSONAL BELONGS PACKED BY AYUSH HOLLAND. REPORT GIVEN TO JACINTO SUMNER AT [facility]. PT TRANSFERED FROM BED INTO TO BE TRANSPORTED TO [facility]. PT HAS POWERGLIDE IN LUE IN PLACE DRAWS AND FLUSHES.
== END 2022-11-28 15:44 | DRG 698 ==
LOC: ER 08:34 → MEDS 14:06
PROVIDERS: Internal Medicine; Nurse Practitioner Acute Care; Physician Assistant; ADMIT Internal Medicine
DX: T83.511A Infection and inflammatory reaction due to indwelling urethral catheter, initial encounter (principal); A41.50 Gram-negative sepsis, unspecified; A41.81 Sepsis due to Enterococcus; J96.01 Acute respiratory failure with hypoxia; G93.41 Metabolic encephalopathy; N17.9 Acute kidney failure, unspecified; E87.20 Acidosis, unspecified; N13.8 Other obstructive and reflux uropathy; I48.20 Chronic atrial fibrillation, unspecified; N39.0 Urinary tract infection, site not specified; E87.70 Fluid overload, unspecified; F03.90 Unspecified dementia, unspecified severity, without behavioral disturbance, psychotic disturbance, mood disturbance, and anxiety; G40.909 Epilepsy, unspecified, not intractable, without status epilepticus; M06.9 Rheumatoid arthritis, unspecified; N40.1 Benign prostatic hyperplasia with lower urinary tract symptoms; K21.9 Gastro-esophageal reflux disease without esophagitis; M19.90 Unspecified osteoarthritis, unspecified site; D69.6 Thrombocytopenia, unspecified; I10 Essential (primary) hypertension; Z79.2 Long term (current) use of antibiotics; I49.5 Sick sinus syndrome; Z20.822 Contact with and (suspected) exposure to COVID-19; Z90.49 Acquired absence of other specified parts of digestive tract; Z79.01 Long term (current) use of anticoagulants; Z98.890 Other specified postprocedural states; Z95.0 Presence of cardiac pacemaker; Z96.653 Presence of artificial knee joint, bilateral; Y84.6 Urinary catheterization as the cause of abnormal reaction of the patient, or of later complication, without mention of misadventure at the time of the procedure; Z79.899 Other long term (current) drug therapy; Z79.891 Long term (current) use of opiate analgesic; R31.0 Gross hematuria
CPT/HCPCS: 36415; 36600; 51702; 70450; 71045; 74177; 80048; 80053; 80069; 81001; 82803; 83605; 83735; 85025; 85027; 87040; 87077; 87086; 87186; 93005; 93010; 96365-59; 96366-59; 96367-59; 96375-59; 99285-25; A9270; J0295; J1940; J2020; J2270; J2543; J7030; J7050; J7120; Q9967; U0004

== ENCOUNTER 2023-03-06 15:30 | Emergency (ER) | payer OTHER ==
[~2023-03-06] VITALS: Ht 193 cm; Wt 90.7 kg
[~2023-03-06 15:30] MED LIST changes: +Acetaminophen325 M1 PO; +CIPR500 PO; +HYDHCL25 PO; +UNASYN 3 GM VIAL3 G1 IV
[2023-03-06 18:17] VITALS: BP 131/85
== END 2023-03-06 20:41 | disposition home or self-care (01) ==
LOC: ER 15:30
DX: T19.0XXA Foreign body in urethra, initial encounter (principal); N40.0 Benign prostatic hyperplasia without lower urinary tract symptoms; I48.91 Unspecified atrial fibrillation; I10 Essential (primary) hypertension; D69.6 Thrombocytopenia, unspecified; I49.5 Sick sinus syndrome; F03.90 Unspecified dementia, unspecified severity, without behavioral disturbance, psychotic disturbance, mood disturbance, and anxiety; K21.9 Gastro-esophageal reflux disease without esophagitis; Z95.0 Presence of cardiac pacemaker; Z79.01 Long term (current) use of anticoagulants; Z79.899 Other long term (current) drug therapy
CPT/HCPCS: 72192; 76857; 99284-25

== ENCOUNTER 2023-09-06 18:28 | Emergency (ER) | payer OTHER ==
[~2023-09-06] VITALS: Ht 177.8 cm; Wt 113.4 kg
[~2023-09-06 18:28] MED LIST changes: +CEFP200 PO
[2023-09-06 18:30] VITALS: BP 122/83
[2023-09-06] MEDS ORDERED: Percocet 5-3251 EACH PO (20:16)
[2023-09-06] MEDS ORDERED: ONDA4 PO (20:16)
== END 2023-09-06 20:23 | disposition home or self-care (01) ==
LOC: ER 18:28
DX: S42.211A Unspecified displaced fracture of surgical neck of right humerus, initial encounter for closed fracture (principal); S42.251A Displaced fracture of greater tuberosity of right humerus, initial encounter for closed fracture; W01.10XA Fall on same level from slipping, tripping and stumbling with subsequent striking against unspecified object, initial encounter; Z79.899 Other long term (current) drug therapy; M19.90 Unspecified osteoarthritis, unspecified site
CPT/HCPCS: 70450; 73030; 73070; 99284-25; A9270

== ENCOUNTER 2023-09-09 15:43 | Emergency (ER) | payer OTHER ==
[~2023-09-09] VITALS: Ht 185.4 cm; Wt 104.3 kg
[~2023-09-09 15:43] MED LIST changes: +ONDA4 PO; +Percocet 5-3251 EACH PO
[2023-09-09 16:22] LABS: Hematocrit 29.3 % (37.0-53.0); Hemoglobin 9.3 g/dL (13.5-17.5); Mean Corpuscular HGB 31.7 pg (26.0-34.0); Mean Corpuscular HGB Conc 31.7 g/dL (31.5-36.5); Mean Corpuscular Volume 100 fL (80-100); Platelet Count 101 K/mm3 (150-400); RDW Coefficient Variation 15.9 % (11.7-14.2); RDW Standard Deviation 58.3 fL (35.1-46.3); Red Blood Cell Count 2.93 M/mm3 (4.30-5.90); White Blood Cell Count 14.74 K/mm3 (4.00-11.30)
[2023-09-09 16:35] LABS: Albumin, Blood 3.3 g/dL (3.4-5.0); Albumin/Globulin Ratio 0.7 (0.8-1.8); Bilirubin, Total 1.1 mg/dL (0.1-1.0); Bun/Creatinine Ratio 24.5 (12.0-20.0); Calcium, Blood 8.4 mg/dL (8.5-10.1); Creatinine, Blood 1.43 mg/dL (0.60-1.20); Globulin, Blood 4.6 g/dL (2.2-4.0); Potassium, Blood 4.2 mmol/L (3.5-5.5); Total Protein, Blood 7.9 g/dL (6.4-8.2)
[2023-09-09 17:30] VITALS: BP 133/79
[2023-09-09 17:30] LABS: BASOPHILS PERCENT MAN 0 % (0-2); EOSINOPHILS PERCENT MAN 0 % (0-6); LYMPHOCYTES % ATYPICAL MANUAL 1 % (0-0); LYMPHOCYTES ABSOLUTE MAN 1.32 K/mm3 (0.84-5.20); LYMPHOCYTES PERCENT MAN 8 % (21-46); MONOCYTES ABSOLUTE MAN 4.12 K/mm3 (0.16-1.47); MONOCYTES PERCENT MAN 28 % (4-13); NEUTROPHILS ABSOLUTE MAN 9.28 K/mm3 (1.96-9.15); SEG NEUTROPHILS PERCENT MAN 63 % (41-73); TOTAL CELLS COUNTED 100
[2023-09-09 17:46] LABS: Source, Urine Clean Catch
[2023-09-09 17:57] LABS: Appearance, Urine Cloudy (Clear); Bilirubin, Urine Neg (Neg); Blood, Urine 2+ (Neg); Color, Urine Yellow (P-Yellow); Glucose Qualitative, Urine 1+ (Neg); Ketones, Urine Neg (Neg); Leukocyte Esterase, Urine 2+ (Neg); Nitrite, Urine Neg (Neg); Protein, Urine 2+ (Neg); Urobilinogen, Urine 1+ (Normal)
[2023-09-09 18:41] LABS: Bacteria Many /hpf; Red Blood Cells, Urine 0-2 /hpf (0-2); Squamous Epithelial Cells Rare /hpf (Few); White Blood Cells, Urine TNTC /hpf (0-5)
[2023-09-09] MEDS ORDERED: LEVFLO500 PO (19:01)
== END 2023-09-09 19:27 | disposition home or self-care (01) ==
LOC: ER 15:43
PROVIDERS: Emergency Medicine
DX: N39.0 Urinary tract infection, site not specified (principal); I10 Essential (primary) hypertension; I48.91 Unspecified atrial fibrillation; F03.90 Unspecified dementia, unspecified severity, without behavioral disturbance, psychotic disturbance, mood disturbance, and anxiety; K21.9 Gastro-esophageal reflux disease without esophagitis; Z79.899 Other long term (current) drug therapy; Z79.01 Long term (current) use of anticoagulants
CPT/HCPCS: 71045; 80053; 81001; 85025; 87077; 87086; 87186; 93005; 93010; 96360; 99284-25; A9270; J7030

== ENCOUNTER → 2025-05-07 | Outpatient (CLI) | payer OTHER ==
[~2025-05-07] MED LIST changes: +LEVFLO500 PO; +TIZANIDINE HCL213 PO; +ZOLOFT25 MG PO
== END | disposition home or self-care (01) ==
LOC: LAB 17:35 → LAB SHORT 17:35
DX: D64.9 Anemia, unspecified (principal); R35.0 Frequency of micturition
CPT/HCPCS: 87086

== ENCOUNTER 2025-06-10 08:08 | Day surgery (SDC) | payer OTHER ==
[2025-06-10] VITALS (9 sets, daily range): BP systolic 134–195; BP diastolic 76–124
[~2025-06-10] VITALS: Ht 185.4 cm; Wt 108.0 kg
[2025-06-10] MEDS ORDERED: Heparin Sodium 1000 Units/ML 10ML MDV ONE (08:12)
[2025-06-10] MEDS ORDERED: NS 1,000 ML IV ONE ×2 (08:12→08:49)
[2025-06-10] MEDS ORDERED: Verapamil HCL 2.5 MG/ML 2ML Injection ONE (08:12)
[2025-06-10] MEDS ORDERED: NS 250 ML IV ONE (08:13)
[2025-06-10] MEDS ORDERED: Midazolam HCl 1MG / ML 2ML Vial ONE (09:16)
[2025-06-10] MEDS ORDERED: FentaNYL Citrate 50 MCG/ML 2 ML Injection ONE (09:16)
--- NOTE | 2025-06-10 10:31 | NUR ---
PT RETURNED TO RECOVERY ROOM IN RECLINER. BILAT RADIAL ARTERY TR BAND SITES SOFT NON-TENDER WITH NO HEMATOMA, NO PULSATILE BLEEDING AND BILAT WRIST BOARDS IN PLACE. PT DENIES CHEST PAIN. CALL LIGHT IN REACH. PT C/O HEADACHE.
--- NOTE | 2025-06-10 10:35 | NUR ---
BP CUFF IS LOCATED ON PT'S LEFT ANKLE.
--- NOTE | 2025-06-10 10:51 | NUR ---
NO CHANGES TO BILAT RADIAL SITES.
--- NOTE | 2025-06-10 11:12 | NUR ---
NO CHANGES TO BILAT RADIAL TR BAND SITES.
--- NOTE | 2025-06-10 11:31 | NUR ---
3 CC OF AIR REMOVED OUT OF EACH RADIAL ARTERY TR BANDS OVER 12 MIN. WILL CONTINUE TO MONITOR.
--- NOTE | 2025-06-10 11:41 | NUR ---
NO CHANGES TO BILAT TR BANDS.
--- NOTE | 2025-06-10 11:53 | NUR ---
NO CHANGES TO BILAT RADIAL SITES. ADDITIONAL 2 CC OF AIR REMOVED OUT OF BILAT TR BANDS. PT DRINKING PEPSI.
--- NOTE | 2025-06-10 12:00 | NUR ---
NO CHANGES TO BILAT RAD TR BANDS.
--- NOTE | 2025-06-10 12:07 | NUR ---
3 CC OF AIR REMOVED OUT OF NOW DEFLATED BILAT RADIAL TR BAND SITES. BILAT RADIAL TR BAND SITES SOFT NON-TENDER WITH NO HEMATOMA, NO PULSATILE BLEEDING AND BILAT WIRST BOARDS IN PLACE.
--- NOTE | 2025-06-10 12:11 | NUR ---
NO CHANGES TO BILAT DEFLATED RADIAL TR BAND SITES.
--- NOTE | 2025-06-10 12:16 | NUR ---
PT DAUGHTER IN ROOM.
--- NOTE | 2025-06-10 12:19 | NUR ---
NO CHANGES TO BILAT DEFLATED RIGHT TR BANDS.
--- NOTE | 2025-06-10 12:38 | NUR ---
FULL REPORT PROVIED TAISHA ALMANZAR TO ASSUME CARE OF PT.
--- NOTE | 2025-06-10 13:24 | NUR ---
PT DRESSED WITH ASSIST. BOTH R AND L WRIST SITES CLEANSED AND CLOTH DOTS PLACED. ARM BOARD PLACED ON BOTH R AND L ARM. SALINE LOCK REMOVED WITH CATHETER INTACT. PT DISCHARGED HOME IN CARE OF DAUGHTER. PT TO PRIVATE VEHICLE PER W/C WITH ONE STAFF.
--- NOTE | 2025-06-10 13:32 | NUR ---
VERBAL AND WRITTEN DISCHARGE INSTRUCTIONS GIVEN TO PATIENT AND PT'S DAUGHTER WITH CLEAR UNDERSTANDING. LAST BP TAKEN ON SAHARA RATHER THAN LOWER LEG; SAHARA WAS AT PRE PROCEDURE BASELINE. PATIENT STATES HE HAS SON AT HOME TO HELP HIM AND HAS A RECLINER THAT IS ELECTRIC TO ASSIST HIM OUT OF CHAIR.
== END 2025-06-10 13:20 | disposition home or self-care (01) ==
LOC: MHTC 08:08
DX: I25.119 Atherosclerotic heart disease of native coronary artery with unspecified angina pectoris (principal); I48.21 Permanent atrial fibrillation; I49.5 Sick sinus syndrome; I10 Essential (primary) hypertension; I44.7 Left bundle-branch block, unspecified; M06.9 Rheumatoid arthritis, unspecified; N40.0 Benign prostatic hyperplasia without lower urinary tract symptoms; Z95.0 Presence of cardiac pacemaker; Z79.01 Long term (current) use of anticoagulants; Z79.899 Other long term (current) drug therapy; Z90.49 Acquired absence of other specified parts of digestive tract
CPT/HCPCS: 76937; 93005; 93010; 93458; 99152; 99153; A9270; C1769; C1887; C1894; J1644; J2250; J3010; J7030; J7050; Q9967

== ENCOUNTER → 2025-10-05 | Outpatient (CLI) | payer OTHER ==
[2025-10-06 00:18] LABS: Ferritin, Serum 62.0 ng/mL (26-388); Total Iron Binding Capacity 297.0 ug/dL (250-450)
== END ==
LOC: LAB 19:15 → LAB SHORT 19:15
PROVIDERS: Nurse Practitioner Family
DX: D64.9 Anemia, unspecified (principal)
CPT/HCPCS: 82728; 83540; 83550

== ENCOUNTER → 2025-10-07 | Outpatient (CLI) | payer OTHER ==
[2025-10-07 16:39] LABS: Source, Urine Voided
[2025-10-07 18:08] LABS: Red Blood Cells, Urine 0-2 /hpf (0-2)
== END | disposition home or self-care (01) ==
LOC: LAB 16:38 → LAB SHORT 16:38
PROVIDERS: Nurse Practitioner Family
DX: R41.0 Disorientation, unspecified (principal)
CPT/HCPCS: 81015; 87086